=== PATIENT | female | born 1950 | race Caucasian/White ===

== ENCOUNTER 2023-07-28 14:27 | Observation (INO) ==
--- OUTSIDE RECORDS SUMMARY | 2023-07-28 14:33 | External Medical Summary | Summary of Care ---
Author Name Unknown Organization [facility] Address [address] [place] [address] Phone [phone] Care Team Providers Care Electrical Laboratory Technician Name Role Phone Bridgette Forde Primary Care Provider [phone] Encounter Details Date Type Department Care Team (Late st Contact Info) Description 06/11/2023 Population Health External Data Unspecified Department Allergies Active Allergy Reactions Criticality Noted Date Comments Lisinopril 02/15/2012 COUGH documented as of this encounter (statuses as of 06/12/2023) Medications Medication Sig Dispensed Refills Start Date End Date Status Meclizine HCl 25 MG Oral Tablet (Antivert)Indicatio ns:Vertigo One pill by mouth up to 3 times a day as needed for dizziness 30 Tablet 1 09/21/2021 Active Atorvastatin Calcium 20 MG Oral Tablet (Lipitor)Indication s:Dyslipidemia, goal LDL below 70 TAKE ONE TABLET BY MOUTH EVERY MORNING 100 Tablet 2 10/30/2022 10/30/2023 Active metFORMIN HCl 500 MG Oral Tablet (Glucophage)Indicat ions:Type 2 diabetes mellitus with hemoglobin A1c goal of less than 7.0% (HCC) TAKE ONE TABLET BY MOUTH TWICE A DAY 180 Tablet 1 02/08/2023 02/08/2024 Active Losartan Potassium 100 MG Oral Tablet (Cozaar)Indications :HTN, goal below 130/80 TAKE ONE TABLET BY MOUTH EVERY MORNING 90 Tablet 1 02/08/2023 02/08/2024 Active cloNIDine HCl 0.1 MG Oral Tablet (Catapres)Indicatio ns:HTN, goal below 130/80 TAKE ONE TABLET BY MOUTH TWICE A DAY 180 Tablet 1 03/08/2023 03/07/2024 Active Furosemide 40 MG Oral Tablet (Lasix)Indications: HTN, goal below 130/80 TAKE ONE TABLET BY MOUTH EVERY DAY IN THE MORNING 90 Tablet 2 03/08/2023 03/07/2024 Active amLODIPine Besylate 5 MG Oral Tablet (Norvasc)Indication s:HTN, goal below 130/80 TAKE ONE TABLET BY MOUTH EVERY DAY IN THE MORNING 90 Tablet 3 03/18/2023 Active Potassium Chloride Mira ER 20 MEQ Oral Tablet Extended Release (Klor-Con M20)Indications:HTN , goal below 130/80 TAKE 1 TABLET BY MOUTH DAILY 90 Tablet 3 03/25/2023 Active Ozempic (1 MG/DOSE) 4 MG/3ML Subcutaneous Solution Pen-injector (Semaglutide (1 MG/DOSE))Indication s:Type 2 diabetes mellitus with hemoglobin A1c goal of less than 7.0% (HCC) Inject 1 mg under the skin once a week. 9 mL 3 05/03/2023 Active documented as of this encounter (statuses as of 06/12/2023) Active Problems Problem Noted Date Diagnosed Date HTN, goal below 130/80 07/23/2022 Chronic kidney disease, stage 3a 07/02/2022 Overview: Per CKD protocol Type 2 diabetes mellitus wit h stage 3a chronic kidney disease 06/04/2022 Overview: Per CKD protocol Class 3 severe obesity in adult 01/26/2021 Overview: 51 DIVINA (obstructive sleep apnea) 05/21/2011 Overview: RDI on baseline 121 On bipap auto now DME: [facility] Dyslipidemia, goal LDL below 70 01/29/2011 Type 2 diabetes mellitus wit h hemoglobin A1c goal of less than 7.0% 12/01/2010 Overview: ICD-10 update of inactive term documented as of this encounter (statuses as of 06/12/2023) Resolved Problems Problem Noted Date Diagnosed Date Resolved Date Type 2 diabetes mellitus wit h stage 2 chronic kidney disease 07/23/2022 01/22/2023 Type 2 diabetes mellitus wit h stage 2 chronic kidney disease 01/22/2022 02/01/2022 Endometrial cancer 01/26/2021 Cancer Staging:Clinical stage from 02/17/2021:FIGO Stage IA(cT1a, cN0(sn), cM0) - Signed by Vasu Gaona MD on 02/23/2021 Morbid obesity with body mas s index (BMI) of 45.0 to 49.9 in adult 11/12/2018 06/21/2020 Hypertensive kidney disease with chronic kidney disease stage III 11/10/2018 12/16/2019 Diabetes mellitus with stage 3 chronic kidney disease 03/31/2018 06/06/2022 Overview: Per CKD protocol #1 BMI 40.0-44.9, adult 02/06/2017 019 Body mass index (BMI) of 45. 0 to 49.9 in adult 01/21/2017 02/06/2017 Overview: Per Obesity protocol #1 HTN, goal below 140/90 06/29/201406/21 HTN, goal below 140/80 12/10/201106/29 Overview: Per HTN Protocol #27. DIVINA (obstructive sleep apnea) 04/09/2011 05/21/2011 Overview: Very severe, AHI 121.2 T and B Hypoxemia 04/09/2011 12/16/2019 Overview: Nocturnal Shortness of breath 02/07/2011 02/08/20 11 Edema 01/13/2010 03/17/2018 Vertigo 01/13/2010 03/17/2018 HTN, goal below 130/80 01/13/201012/12 Overview: Per HTN Protocol #27. documented as of this encounter (statuses as of 06/12/2023) Immunizations Name Administration Dates Next Due COVID-19 mRNA, LNP-s, No Pre serve, 2-Dose Series (Pfizer) 03/09/2021 Pneumococcal Conjugate Vacci ne, 20-valent ([id number]) 07/23/2022 Pneumococcal Polysaccharide PPV23 (Pneumovax) 06/21/2020,11/19/2013 Seasonal Influenza, PF, 6 M & above, IM , (FluLaval or Fluzone) 01/20/2021,01/22/2020,01/30/2018,02/06 Seasonal Influenza, Quadriva lent Hd (Fluzone Hd) 01/22/2023,01/22/2022 Seasonal Influenza, Quadriva lent, No Preserve, IM 02/14/2016,02/14/2015 Seasonal Influenza, Split, I IV3, No Preserve, Inj 02/22/2018 Seasonal Influenza, Split, I IV3, With Preserve, Inj 01/29/2011,01/24/2010 TDAP (age 10 and older)(Boostrix) 07/21/2021 TDAP (age 11 and older)(Adacel) 01/13/2010 Zoster Vaccine Recombinant (Shingrix) 11/12/2018 ,03/17/2018,03/17/2018() documented as of this encounter Social History Tobacco Use Types Packs/Day Years Used Date Smoking Tobacco: Former Cigarettes 0.5 20 0 05/23/1984 - 05/23/2004 Smokeless Tobacco: Never Alcohol Use Standard Drinks/Week Comments Yes 0 (1 standard drink = 0.6 oz pur e alcohol) occasional ETOH PHQ-2 Answer Date Recorded PHQ Adult Total Score 0 09/27/2022 Hunger Vital Sign Answer Date Recorded Within the past 12 months, y ou worried that your food would run out before you got the money to buy more. Never true 09/28/19 23 Within the past 12 months, t he food you bought just didn't last and you didn't have money to get more. Never true 09/27/2022 Sex and Gender Information Value Date Recorded Sex Assigned at Not on file Gender Identity Female 09/27/2022 9:58 AM EDT Sexual Orientation Straight 11/12/2018 11 :34 AM EDT Job Start Date Occupation Industry Not on file Not on file Not on file documented as of this encounter Plan of Treatment Upcoming Encounters Date Type Department Care Team (Late st Contact Info) Description 06/26/2023 9:00 AM EST Office Visit Pharmacy, [place] [facility] [place] [phone] [facility] [address] [facility] [address] 07/24/2023 8:20 AM EDT [facility], [place] [address] [facility] [place] [phone] Yenifer Krause PA-C [address] [facility] [address] 08/09/2023 10:00 AM EDT Office Visit Sleep Disorders Ctr [facility] [address] [facility] [place] [phone] Fay Ferreira DO [address] [facility] [place] [address] 10/03/2023 9:30 AM EDT Nurse Only Ancillary Department, [place] [address] [facility] [address] [place], [facility] [address] [facility] [address] 02/20/2024 7:00 AM EDT Imaging Radiology [address] [facility] [place] [address] Scheduled Procedures Name Priority Associated Diagnoses Date/Ti me COLONOSCOPY FLEXIBLE PROXIMAL DIAGNOSTIC Recall Colon cancer screening Health Maintenance Due Date Last Done Comments Cologuard 1997 Fecal Occult Blood Test 1997 Sigmoidoscopy 1997 COVID-19 Vaccine ( season) 2022 03/09/2021, 07/27/2020, 07/06/2020 Albumin/Creatinine Ratio 05/21/2023 023, 07/25/2021, 03/17/2018, Additional history exists GFR 07/16/2023 01/15/2023, 04/24, 01/22/2022, Additional history exists Diabetic Foot Exam 07/24/2023 07/23/2022, 0 06/21/2020, 03/17/2018, Additional history exists Diabetic Eye Exam 08/08/2023 08/07/2022, , 01/11/2017, Additional history exists Depression Screening 09/28/2023 09/27/2022 HbA1c 10/23/2023 04/24/2023, 12/22, 05/21/2022, Additional history exists B-12 01/16/2024 01/15/2023, 04/0 04/2021, 12/22/2020, Additional history exists CKD HGB USE SMARTSET 96780 01/16/202401/15, 07/21/2021, 02/06/2021, Additional history exists CKD PHOS USE SMARTSET 65425 01/16/202412/22, 07/21/2021, 12/22/2020, Additional history exists Mammogram 02/19/2024 02/18/2023, 01/22, 02/16/2022, Additional history exists Colonoscopy 07/07/2025 07/08/2015 Colorectal Cancer Screening 07/07/2025 Lipid Panel 05/21/2027 05/21/2022, 04/0 04/2021, 12/08/2019, Additional history exists DXA Scan 08/22/2028 08/22/2021, 08/22/2021 DTaP,Tdap,and Td Vaccines (3 - Td or Tdap) 07/22/2031 07/21/2021, 01/13/2010 Zoster Vaccines Completed 11/12/2018, 03/17/2018 Pneumococcal Vaccine: 65+ Years Completed 07/23/2022, 06/21/2020, 11/19/2013 Influenza Vaccine (FLU shot) Completed 06/2022, 01/22/2022, 01/20/2021, Additional history exists GARDASIL-HPV IMMUNIZATION SERIES Aged Out No longer eligible based on patient's age to complete this topic Hepatitis B Aged Out No longer eligi ble based on patient's age to complete this topic MENINGOCOCCAL (MENACTRA/MENVEO) Aged Out No longer eligible based on patient's age to complete this topic documented as of this encounter Medical Devices Not on filedocumented as of this encounter Advance Directives Latest Code Status on File Code Status Date Activated Date Inactivated Comments Full Code 02/17/2021 11:44 AM 02/17/2021 4:59 PM Th is order reflects the patients wishes and were consensually agreed upon. Question Answer Comments Discussion of Advance Directives occurred with: Not Discussed Care Teams Electrical Laboratory Technician Relationship Specialty Start Date End Date Bridgette Forde DO [address] [facility] [address] PCP - General 01/12/10 documented as of this encounter
--- OUTSIDE RECORDS SUMMARY | 2023-07-28 14:33 | External Medical Summary | Summary of Care ---
Author Name Unknown Organization [facility] Address [address] [place] [address] Phone [phone] Care Team Providers Care Elder Counselor Name Role Phone Bridgette Forde Primary Care Provider [phone] Encounter Details Date Type Department Care Team (Late st Contact Info) Description 07/18/2023 Population Health External Data Unspecified Department Allergies Active Allergy Reactions Criticality Noted Date Comments Lisinopril 02/15/2012 COUGH documented as of this encounter (statuses as of 07/23/2023) Medications Medication Sig Dispensed Refills Start Date [...] DAILY 90 Tablet 3 03/25/2023 Active Ozempic (2 MG/DOSE) 8 MG/3ML Subcutaneous Solution Pen-injector (Semaglutide (2 MG/DOSE))Indication s:Type 2 diabetes mellitus with hemoglobin A1c goal of less than 7.0% (HCC),Type 2 diabetes mellitus with stage 3a chronic kidney disease, without long-term current use of insulin (HCC) Inject 2 mg under the skin once weekly - dose increase 9 mL 4 06/26/2023 Active documented as of this encounter (statuses as of 07/23/2023) Active Problems Problem Noted Date Diagnosed Date [...] as of this encounter (statuses as of 07/23/2023) Resolved Problems Problem Noted Date Diagnosed Date [...] as of this encounter (statuses as of 07/23/2023) Immunizations Name Administration Dates Next Due COVID-19 mRNA, LNP-s, No Pre serve, 2-Dose Series ([employer]) 03/09/2021 Pneumococcal Conjugate Vacci ne, 20-valent ([id number]) 07/23/2022 Pneumococcal Polysaccharide PPV23 (Pneumovax) 06/21/2020,11/19/2013 Seasonal [...] Care Team (Late st Contact Info) Description 07/24/2023 8:20 AM EDT Office [facility] [place] [address] [facility] [phone] Yenifer Krause PA-C [address] [place] [address] 08/09/2023 10:00 AM EDT [facility] [address] [facility] [phone] Fay Ferreira, [address] [facility] [place] [address] 10/03/2023 8:50 AM EDT Office Visit Pharmacy, [place] [address] [place] [facility] [address] [place], [facility] [address] [place] [facility] [address] 10/03/2023 9:30 AM EDT Nurse Only Ancillary Department, [place] [address] [place] [facility] [address] [place], Nurse Annual Wellness [address] [place] [address] 02/20/2024 7:00 AM EDT Imaging Radiology [facility] [address] [facility] [address] [facility] [address] Scheduled Procedures Name Priority Associated Diagnoses Date/Ti me COLONOSCOPY FLEXIBLE PROXIMAL DIAGNOSTIC Recall Colon cancer screening Health Maintenance Due Date Last Done Comments Cologuard 1997 Fecal Occult Blood Test 1997 Sigmoidoscopy 1997 COVID-19 Vaccine ( season) 2022 03/09/2021, 07/27/2020, 07/06/2020 Diabetic Foot Exam 07/24/2023 07/23/2022, 0 06/21/2020, 03/17/2018, Additional history exists Diabetic Eye Exam 08/08/2023 08/07/2022, , 01/11/2017, Additional history exists Depression Screening 09/28/2023 09/27/2022 B-12 01/16/2024 01/15/2023, 04/0 04/2021, 12/22/2020, Additional history exists CKD HGB USE SMARTSET 54248 01/16/202401/15, 07/21/2021, 02/06/2021, Additional history exists CKD PHOS USE SMARTSET 26743 01/16/202412/22, 07/21/2021, 12/22/2020, Additional history exists GFR 01/21/2024 07/22/2023, 12/22, 05/21/2022, Additional history exists HbA1c 01/21/2024 07/22/2023, 06/2023, 01/15/2023, Additional history exists Mammogram 02/19/2024 02/18/2023, 01/22, 02/16/2022, Additional history exists Albumin/Creatinine Ratio 07/21/2024 024, 05/21/2022, 07/25/2021, Additional history exists Colonoscopy 07/07/2025 07/08/2015 Colorectal [...] Directives occurred with: Not Discussed Care Teams Elder Counselor Relationship Specialty Start Date End Date Bridgette Forde DO [address] [place] [address] PCP - General 01/12/10 documented as of this encounter
--- OUTSIDE RECORDS SUMMARY | 2023-07-28 14:33 | External Medical Summary ---
Author Name Unknown Address Unknown Organization [id number]:[facility] [place] [address] [place] [address] Laboratory Report Ordering Provider Test Date Status JENN MADRID 07/22/2023 08:19:01 Final Observation Date Value Abnormality Reference (Units ) Status MYCODE SPECIMEN-SST 07/22/2023 08:19:01 Freezing of extracted DNA, whole blood and/or serum. Final Performing Location LABORATORY C - [address] [place] [address]
--- OUTSIDE RECORDS SUMMARY | 2023-07-28 14:33 | External Medical Summary | Summary of Care ---
Author Name Unknown Organization [facility] Address [address] [place] [address] Phone [phone] Care Team Providers Care Clinical Nurse Reviewer Name Role Phone CristinaJ Luis ibarradannielle Okeefe DO Primary Care Provider + [phone] Reason for Visit * Reason Comments Follow Up Patient is here for 6 month follow upPatient states she would like to review her blood work from saturday Encounter Details Date Type Department Care Team (Late st Contact Info) Description 07/24/2023 8:20 AM EDT Office Visit [facility] [address] [place] [address] Yenifer Krause PA-C [address] [place] [address] Type 2 diabetes mellitus with hemoglobin A1c goal of less than 7.0% (HCC)*; Type 2 diabetes mellitus with stage 3a chronic kidney disease, without long-term current use of insulin (HCC); Morbid (severe) obesity due to excess calories (HCC); Type 2 diabetes mellitus with stage 2 chronic kidney disease, unspecified whether termite control representative insulin use (HCC); Chronic kidney disease, stage 3a (HCC); HTN, goal below 130/80; Dyslipidemia, goal LDL below 70; Encounter for long-term (current) use of medications; Encounter for screening mammogram for breast cancer Allergies Active Allergy Reactions Criticality Noted Date Comments Lisinopril 02/15/2012 COUGH documented as of this encounter (statuses as of 07/24/2023) Medications Medication Sig Dispensed Refills Start Date End Date Status Meclizine HCl 25 MG Oral Tablet (Antivert)Indicati ons:Vertigo One pill by mouth up to 3 times a day as needed for dizziness 30 Tablet 1 09/21/2021 Active Atorvastatin Calcium 20 MG Oral Tablet (Lipitor)Indicatio ns:Dyslipidemia, goal LDL below 70 TAKE ONE TABLET BY MOUTH EVERY MORNING 100 Tablet 2 10/30/2022 4 Active Losartan Potassium 100 MG Oral Tablet (Cozaar)Indication s:HTN, goal below 130/80 TAKE ONE TABLET BY MOUTH EVERY MORNING 90 Tablet 1 02/08/2023 4 Active cloNIDine HCl 0.1 MG Oral Tablet (Catapres)Indicati ons:HTN, goal below 130/80 TAKE ONE TABLET BY MOUTH TWICE A DAY 180 Tablet 1 03/08/2023 4 Active Furosemide 40 MG Oral Tablet (Lasix)Indications :HTN, goal below 130/80 TAKE ONE TABLET BY MOUTH EVERY DAY IN THE MORNING 90 Tablet 2 03/08/2023 4 Active amLODIPine Besylate 5 MG Oral Tablet (Norvasc)Indicatio ns:HTN, goal below 130/80 TAKE ONE TABLET BY MOUTH EVERY DAY IN THE MORNING 90 Tablet 3 03/18/2023 Active Potassium Chloride Mira ER 20 MEQ Oral Tablet Extended Release (Klor-Con M20)Indications:HT N, goal below 130/80 TAKE 1 TABLET BY MOUTH DAILY 90 Tablet 3 03/25/2023 Active Ozempic (2 MG/DOSE) 8 MG/3ML Subcutaneous Solution Pen-injector (Semaglutide (2 MG/DOSE))Indicatio ns:Type 2 diabetes mellitus with hemoglobin A1c goal of less than 7.0% (HCC),Type 2 diabetes mellitus with stage 3a chronic kidney disease, without long-term current use of insulin ([facility]) Inject 2 mg under the skin once weekly - dose increase 9 mL 4 06/26/2023 Active metFORMIN HCl ER 500 MG Oral Tablet Extended Release 24 Hour (Glucophage XR)Indications:Typ e 2 diabetes mellitus with stage 3a chronic kidney disease, without long-term current use of insulin ([facility]),Type 2 diabetes mellitus with stage 2 chronic kidney disease, unspecified whether termite control representative insulin use ([facility]) Take 1 Tablet by mouth in the morning. 90 Tablet 1 07/24/2023 Active metFORMIN HCl 500 MG Oral Tablet (Glucophage)Indica tions:Type 2 diabetes mellitus with hemoglobin A1c goal of less than 7.0% (HCC) TAKE ONE TABLET BY MOUTH TWICE A DAY 180 Tablet 1 02/08/2023 4 Discontinue d(Medicatio n/Dose Changed) documented as of this encounter (statuses as of 07/24/2023) Active Problems Problem Noted Date Diagnosed Date Type 2 diabetes mellitus wit h stage 2 chronic kidney disease 07/24/2023 HTN, goal below 130/80 07/23/2022 Chronic kidney [...] as of this encounter (statuses as of 07/24/2023) Resolved Problems Problem Noted Date Diagnosed Date Resolved Date Type 2 diabetes mellitus wit h stage 2 chronic kidney disease 07/23/2022 01/22/2023 Type 2 diabetes mellitus wit h stage 2 chronic kidney disease 01/22/2022 02/01/2022 Endometrial cancer 01/26/2021 3 Cancer Staging:Clinical stage from 02/17/2021:FIGO Stage IA(cT1a, [...] as of this encounter (statuses as of 07/24/2023) Immunizations Name Administration Dates Next Due COVID-19 mRNA, LNP-s, No Pre serve, 2-Dose Series (Pay-Me) 03/09/2021 Pneumococcal Conjugate Vacci ne, 20-valent ([id number]) 07/23/2022 Pneumococcal Polysaccharide PPV23 (Pneumovax) 06/21/2020,11/19/2013 Seasonal [...] on file documented as of this encounter Last Filed Vital Signs Vital Sign Reading Time Taken Comments Blood Pressure 122/88 07/24/2023 8:14 AM EDT Pulse 76 07/24/2023 8:14 AM EDT Temperature 36.6 C (97.8 F) 07/24/2023 8:14 AM ED T Respiratory Rate 16 07/24/2023 8:14 AM EDT Oxygen Saturation 98% 07/24/2023 8:14 AM EDT Inhaled Oxygen Concentration - - Weight 131 kg (288 lb 12.8 oz) 07/24/2023 8:14 A M EDT Height - - Body Mass Index 46.61 08/08/2022 10:35 AM EDT documented in this encounter Patient Instructions * Patient Instructions* Hiro Garcia Student - 07/24/2023 8:11 AM EDT Diabetes: Keeping Feet Healthy Inspect your feet every day for signs of a problem. Diabetes can damage nerves in your feet and cause neuropathy. This condition makes it hard for you to feel injuries or sore spots. Diabetes can also change blood flow, making it harder for small problems, like a blister, to heal properly. In fact, minor injuries can quickly become serious infections that send you to the hospital. Practice self-care to protect your feet and keep them healthy. Take Special Care Inspect your feet daily for problems such as redness, blisters, cracks, dry skin, or numbness. Use a mirror to see the bottoms of your feet. Or, ask for help. Manage your diabetes. Monitor and control your blood sugar. Take all your medications as prescribed. Avoid walking barefoot, even indoors. Wash your feet with warm water and mild soap. Dry well, especially between toes. Dont treat corns or calluses yourself. Talk to your doctor or windows deployment technician (a doctor who specializes in foot care) if you need assistance trimming your toenails. Use moisturizing cream or lotion if you have dry skin, but dont use it between toes. Dont use heating pads on your feet. If you have neuropathy, you could get a burn and not feel it. Stop smoking. Smoking restricts blood flow and can make it harder for wounds to heal. Have Regular Checkups Foot problems can develop quickly. So be sure to follow your healthcare teams schedule for regular checkups. During office visits, take off your shoes and socks as soon as you get in the exam room. Ask your healthcare provider to examine your feet for problems. This will make it easier to find and treat small skin irritations before they get worse. Regular checkups can also help keep track of the blood flow and feeling in your feet. If you have neuropathy, you may need to have checkups more often. Wear Proper Footwear Wearing proper footwear is very important. If areas of your feet have been damaged by too much pressure, your healthcare provider may recommend changing your footwear. In some cases, avoiding high heels or tight work boots may be all thats needed. Or, your healthcare provider may recommend special shoes or custom inserts. These help protect your feet and keep existing irritations from getting worse. If you need special footwear, ask your healthcare provider if you qualify for [employer] diabetic shoe program. Make Sure Shoes and Socks Fit Any pair of shoes--new or old--should feel comfortable as soon as you put them on. There shouldnt be any rubbing when you walk. Wear the right shoe for any activity. For instance, a running shoe is designed to keep your feet injury-free while jogging. Buy shoes at the end of the day, when your feet are larger. Make sure they provide support without feeling too loose. Make sure your socks fit, t oo. Wear soft, seamless, well-padded socks for activity. Cotton or microfiber socks are best to help to absorb sweat. To protect your feet, avoid shoes that are open-toed or open-heeled. If you have questions about what kinds of shoes and socks are best, talk to your healthcare team. Get Regular Exercise Regular exercise improves blood flow in your feet. It also increases foot strength and flexibility.Gentle exercises, like walking or riding a stationary bicycle, are best. You can also do special foot exercises. Just be sure to talk with your healthcare provider before starting any exercise program. Also mention if any exercise causes pain, redness, or other signs of foot problems. Note: If you have any kind of break in the skin of your foot or ankle, keep the area clean. Then call your doctor--especially if the area doesnt appear to be healing. [phone] [employer], [address] [place] [address]. All rights reserved. This information is not intended as a substitute for professional medical care. Always follow your healthcare professional's instructions. documented in this encounter Progress Notes * Yenifer Krause PA-C - 07/24/2023 8:24 AM EDT Images from the original note were not included. History of Present Illness Shivani Gee is a 73 year old female that presents for Follow Up (Patient is here for 6 month follow up/Patient states she would like to review her blood work from saturday) Here for 6 months return Doing her ozempic and losing weight Healthier Lost 20 lbs Did her lab work yesterday. Exercising Gets full fast - better portion control Eye exam scheduled Component Latest Ref Rng 12/22/2020 07/21/2021 01/22/2022 05/21/2022 01/15/2023 Hemoglobin A1C 4.0 - 5.6 % 6.3 (H) 6.5 (H) 6.3 (H) 6.3 (H) 6.7 (H) Estimated Average Glucose <126 mg/dL 134 (H) 140 (H) 134 (H) 134 (H) 146 (H) Component Latest Ref Rng 04/24/2023 07/22/2023 Hemoglobin A1C 4.0 - 5.6 % 6.5 (H) 5.9 (H) Estimated Average Glucose <126 mg/dL 140 (H) 123 Legend: (H) High Past Medical History: Diagnosis Date Dyslipidemia, goal LDL below 70 01/29/2011 Endometrial ca (HCC) HTN, goal below 140/90 2003 Type 2 diabetes mellitus with hemoglobin A1c goal of less than 7.0% (HCC) 12/01/2010 ICD-10 update of inactive term Vertigo Physical Exam Vitals: 07/24/23 0814 Temp: 36.6 C (97.8 F) Pulse: 76 Resp: 16 SpO2: 98% BP: 122/88 BP Readings from Last 3 Encounters: 07/24/23 122/88 01/22/23 124/80 09/27/22 171/87 Wt Readings from Last 3 Encounters: 07/24/23 131 kg (288 lb 12.8 oz) 01/22/23 (!) 139.1 kg (306 lb 9.6 oz) 09/27/22 (!) 139.1 kg (306 lb 11.2 oz) BMI Readings from Last 3 Encounters: 07/24/23 46.61 kg/m 01/22/23 49.49 kg/m 09/27/22 49.50 kg/m Ht Readings from Last 3 Encounters: 08/08/22 1.676 m (5' 6") 01/22/22 1.676 m (5' 6") 10/12/21 1.676 m (5' 6") General: alert, healthy, and no distress Head: Normocephalic, No masses, lesions, tenderness or abnormalities Eye Exam: PERRLA, extraocular movements intact, conjunctiva are pink and non- injected, sclera clear Heart: regular rate & rhythm, no murmur, no gallops, S-1 normal, and S-2 normal Lungs: chest symmetric with normal AP diameter, no chest deformities noted, no chest wall tenderness, lungs clear to auscultation Extremities: less than 2 second capillary refill, no joint deformities, effusion, or inflammation Skin: skin color, texture, turgor are normal, no rashes or significant lesions I have reviewed the following results: Hemoglobin A1C Assessment and Plan Type 2 diabetes mellitus with hemoglobin A1c goal of less than 7.0% ([facility]) (Primary) - DIABETES FOOT EXAM - VITAMIN B12; Future; Expected date: 10/22/2023 - LIPASE; Future; Expected date: 10/22/2023 - HEMOGLOBIN A1C; Future; Expected date: 10/22/2023 Type 2 diabetes mellitus with stage 3a chronic kidney disease ([facility]) - DIABETES FOOT EXAM - metFORMIN HCl ER 500 MG Oral Tablet Extended Release 24 Hour (Glucophage XR); Take 1 Tablet by mouth in the morning. - VITAMIN B12; Future; Expected date: 10/22/2023 - LIPASE; Future; Expected date: 10/22/2023 - HEMOGLOBIN A1C; Future; Expected date: 10/22/2023 Morbid (severe) obesity due to excess calories ([facility]) Type 2 diabetes mellitus with stage 2 chronic kidney disease, unspecified whether termite control representative insulinuse ([facility]) - metFORMIN HCl ER 500 MG Oral Tablet Extended Release 24 Hour (Glucophage XR); Take 1 Tablet by mouth in the morning. - VITAMIN B12; Future; Expected date: 10/22/2023 - LIPASE; Future; Expected date: 10/22/2023 - HEMOGLOBIN A1C; Future; Expected date: 10/22/2023 Chronic kidney disease, stage 3a ([facility]) - PHOSPHORUS; Future; Expected date: 10/22/2023 - HGB; Future; Expected date: 10/22/2023 - COMPREHENSIVE METABOLIC PANEL; Future; Expected date: 10/22/2023 HTN, goal below 130/80 - LIPID PANEL WITH DIRECT LDL IF TG IS HIGH Dyslipidemia, goal LDL below 70 - LIPID PANEL WITH DIRECT LDL IF TG IS HIGH Encounter for long-term (current) use of medications - LIPASE Encounter for screening mammogram for breast cancer - MAMMOGRAM SCREENING SONAL BILATERAL; Future; Expected date: 02/20/2024 Cont to monitor lipase Rev labs Patient congratulated on weight loss Drop dose of metformin The patient is asked to make an attempt to improve diet and exercise patterns to aid in medical management of this problem. It is recommended that patients exercise for a minimum of 20 minutes duration most days of the week. Intensity should be such that the heart rate is increased and the patient is making a physical effort above their normal level of activity. Wrap-Up Time: I spent a total of 20-29 minutes (exact time 26 mins) on the date of service in preparation, delivery, and documentation of the care provided to Shivani Gee excluding any time spent in the performance of separately billed services. Yenifer Krause PA-C 07/24/2023 8:36 AM * Hiro Garcia Student - 07/24/2023 8:10 AM EDT Socks and Shoes Removed for Annual Diabetic Foot Screening RIGHT FOOT: No Reddened, Cracking, Or Open Areas Noted. RIGHT Dorsalis Pedis Pulse: Palpable RIGHT Posterior Tibial Pulse: Palpable RIGHT Monofilament:Patient reports feeling monofilament pressure on plantar surface of foot LEFT FOOT: No Reddened, Cracking or Open Areas Noted. LEFT Dorsalis Pedis Pulse: Palpable LEFT Posterior Tibial Pulse: Palpable LEFT Monofilament:Patient reports feeling monofilament pressure on plantar surface of foot Do you need diabetic shoes: No documented in this encounter Nursing Notes * Hiro Garcia Student - 07/24/2023 8:18 AM EDT The patient has been properly identified by confirmation of name and date of . Chief Complaint Patient presents with Follow Up Patient is here for 6 month follow up Patient states she would like to review her blood work from saturday documented in this encounter Plan of Treatment Upcoming Encounters Date Type Department Care Team (Late st Contact Info) Description 08/09/2023 10:00 AM EDT Office Visit [facility] [address] [place] [id number] Fay Ferreira DO [address] [place] [address] 10/03/2023 8:50 AM EDT [facility] [place] [address] [facility] [address] [facility] [address] [facility] [address] 10/03/2023 9:30 AM EDT Nurse Only Ancillary Department, [place] [address] [facility] [address] [place], [facility] [address] [facility] [address] 01/23/2024 8:20 AM EDT Office Visit [facility], [place] [address] [facility] [phone] Yenifer Krause [facility]-C [address] [facility] [address] 02/20/2024 7:00 AM EDT Imaging Radiology [address], [place] [address] [place] [address] Pending Results Name Type Priority Associated Diagnoses Date /Time LIPASE Lab Routine Encounter for long-term (current) use of medications 07/22/2023 8:19 AM EDT LIPID PANEL WITH DIRECT LDL IF TG IS HIGH Lab Routine HTN, goal below 130/80 Dyslipidemia, goal LDL below 70 07/22/2023 8:19 AM EDT Scheduled Orders Name Type Priority Associated Diagnoses Orde r Schedule PHOSPHORUS Lab Routine Chronic kidney disease, stage 3a (HCC) Expected: 10/22/2023 (Approximate), Expires: 07/23/2024 HGB Lab Routine Chronic kidney disease, stage 3a (HCC) Expected: 10/22/2023 (Approximate), Expires: 07/23/2024 VITAMIN B12 Lab Routine Type 2 diabetes mellitus with hemoglobin A1c goal of less than 7.0% (HCC) Type 2 diabetes mellitus with stage 3a chronic kidney disease, without long-term current use of insulin (HCC) Type 2 diabetes mellitus with stage 2 chronic kidney disease, unspecified whether termite control representative insulin use (HCC) Expected: 10/22/2023 (Approximate), Expires: 07/23/2024 COMPREHENSIVE METABOLIC PANEL Lab Routine Chronic kidney disease, stage 3a (HCC) Expected: 10/22/2023 (Approximate), Expires: 07/23/2024 LIPASE Lab Routine Type 2 diabetes mellitus with hemoglobin A1c goal of less than 7.0% (HCC) Type 2 diabetes mellitus with stage 3a chronic kidney disease, without long-term current use of insulin (HCC) Type 2 diabetes mellitus with stage 2 chronic kidney disease, unspecified whether fdc insulin use (HCC) Expected: 10/22/2023 (Approximate), Expires: 07/23/2024 HEMOGLOBIN A1C Lab Routine Type 2 diabetes mellitus with hemoglobin A1c goal of less than 7.0% (HCC) Type 2 diabetes mellitus with stage 3a chronic kidney disease, without long-term current use of insulin (HCC) Type 2 diabetes mellitus with stage 2 chronic kidney disease, unspecified whether fdc insulin use (HCC) Expected: 10/22/2023 (Approximate), Expires: 07/23/2024 MAMMOGRAM SCREENING SONAL BILATERAL Medical Imaging Routine Encounter for screening mammogram for breast cancer Expected: 02/20/2024, Expires: 08/22/2024 Scheduled Procedures Name Priority Associated Diagnoses Date/Ti me COLONOSCOPY FLEXIBLE PROXIMAL DIAGNOSTIC Recall Colon cancer screening Health Maintenance Due Date Last Done Comments Cologuard 1997 Fecal Occult Blood Test 1997 Sigmoidoscopy 1997 COVID-19 Vaccine ( season) 2022 03/09/2021, 07/27/2020, 07/06/2020 Diabetic Eye Exam 08/08/2023 08/07/2022, , 01/11/2017, Additional history exists Depression Screening 09/28/2023 09/27/2022 B-12 01/16/2024 01/15/2023, 040 04/2021, 12/22/2020, Additional history exists CKD HGB USE SMARTSET 49866 01/16/202401/15, 07/21/2021, 02/06/2021, Additional history exists CKD PHOS USE SMARTSET 17892 01/16/202412/22, 07/21/2021, 12/22/2020, Additional history exists GFR 01/21/2024 07/22/2023, 12/22, 05/21/2022, Additional history exists HbA1c 01/21/2024 07/22/2023, 06/2023, 01/15/2023, Additional history exists Mammogram 02/19/2024 02/18/2023, 01/22, 02/16/2022, Additional history exists Albumin/Creatinine Ratio 07/21/2024 024, 05/21/2022, 07/25/2021, Additional history exists Diabetic Foot Exam 07/23/2024 07/24/2023, 0 07/23/2022, 06/21/2020, Additional history exists Colonoscopy 07/07/2025 07/08/2015 Colorectal [...] Not on filedocumented as of this encounter Visit Diagnoses Diagnosis Type 2 diabetes mellitus with stage 2 chronic kidney disease, unspecified whether fdc insulin use (HCC) Type 2 diabetes mellitus with stage 3a chronic kidney disease, without long-term current use of insulin (HCC) Morbid (severe) obesity due to excess calories (HCC) Chronic kidney disease, stage 3a (HCC) HTN, goal below 130/80 Unspecified essential hypertension Dyslipidemia, goal LDL below 70 Other and unspecified hyperlipidemia Encounter for long-term (current) use of medications Encounter for long-term (current) use of other medications Encounter for screening mammogram for breast cancer documented in this encounter Advance Directives Latest Code Status on File Code Status Date Activated Date Inactivated Comments Full Code 02/17/2021 11:44 AM 02/17/2021 4:59 PM Th is order reflects the patients wishes and were consensually agreed upon. Question Answer Comments Discussion of Advance Directives occurred with: Not Discussed Care Teams Clinical Nurse Reviewer Relationship Specialty Start Date End Date Bridgette Forde DO [address] [place] [address] PCP - General 01/12/10 documented as of this encounter
--- OUTSIDE RECORDS SUMMARY | 2023-07-28 14:33 | External Medical Summary ---
Author Name Unknown Address Unknown Organization [id number]:[facility] [place] - [address] [place] [address] Laboratory Report Ordering Provider Test Date Status DALE MALONEY 07/22/2023 14:03:13 Final Normal: <30 mg/g creatinine< br/>High: 30-300 mg/g creatinine
Very High: >300 mg/g creatinine
Nephrotic: >2200 mg/g creatinine Observation Date Value Abnormality Reference (Units ) Status Albumin, Urine 07/22/2023 14:03:13 3.49 (mg/dL) Final Creatinine, Urine 07/22/2023 14:03:13 251 (mg/dL) Final Albumin/Creatinine [Mass Ratio] in Urine 07/22/2023 14:03:13 14 <30 (mg/g Creat) Final Performing Location [facility] [place] - [address] [place] [address]
--- OUTSIDE RECORDS SUMMARY | 2023-07-28 14:33 | External Medical Summary | Summary of Care ---
Author Name Unknown Organization [facility] Address [address] [place] [address] Phone [phone] Care Team Providers Care Director Of Career Resources Name Role Phone JorgitoBridgette millan Sary THAPA Primary Care Provider + [phone] Reason for Visit * Reason Comments Outpatient Testing Encounter Details Date Type Department Care Team (Late st Contact Info) Description 07/22/2023 8:10 AM EDT Laboratory Laboratory, [place] [address] [place] [address] [place], Laboratory [address] [place] [address] [employer] Other*[id number]; Type 2 diabetes mellitus with hemoglobin A1c goal of less than 7.0% ([facility]); Type 2 diabetes mellitus with stage 3a chronic kidney disease ([facility]) Allergies Active Allergy Reactions Criticality Noted Date Comments Lisinopril 02/15/2012 COUGH documented as of this encounter (statuses as of 07/22/2023) Medications Medication Sig Dispensed Refills Start Date [...] as of this encounter (statuses as of 07/22/2023) Active Problems Problem Noted Date Diagnosed Date [...] as of this encounter (statuses as of 07/22/2023) Resolved Problems Problem Noted Date Diagnosed Date [...] as of this encounter (statuses as of 07/22/2023) Immunizations Name Administration Dates Next Due COVID-19 mRNA, LNP-s, No Pre serve, 2-Dose Series (Pfizer) 03/09/2021 Pneumococcal Conjugate Vacci ne, 20-valent ([id number]) 07/23/2022 Pneumococcal Polysaccharide PPV23 (Pneumovax) 06/21/2020,11/19/2013 Seasonal [...] Description 07/24/2023 8:20 AM EDT [facility] [place] [address] [facility] [address] [facility]use [facility]C [address] [facility] [address] 08/09/2023 10:00 AM EDT Office Visit Sleep Disorders Ctr [facility] [address] [place] [phone] Fay Ferreira DO [address] [facility] [place] [address] 10/03/2023 8:50 AM EDT Office [facility] [place] [address] [facility] [address] [place], [facility] [address] [facility] [address] 10/03/2023 9:30 AM EDT Nurse Only Ancillary Department, [place] [address] [facility] [address] [place], Nurse [facility] [address] [facility] [address] 02/20/2024 7:00 AM EDT Imaging Radiology [address] [facility] [place] [address] Pending Results Name Type Priority Associated Diagnoses Date /Time MYCODE SUBSEQUENT ADULT Lab Routine [employer] Other*[id number] 07/22/2023 8:19 AM EDT HEMOGLOBIN A1C Lab Routine Type 2 diabetes mellitus with hemoglobin A1c goal of less than 7.0% (HCC) Type 2 diabetes mellitus with stage 3a chronic kidney disease (HCC) 07/22/2023 8:19 AM EDT BASIC METABOLIC PANEL Lab Routine Type 2 diabetes mellitus with hemoglobin A1c goal of less than 7.0% (HCC) Type 2 diabetes mellitus with stage 3a chronic kidney disease (HCC) 07/22/2023 8:19 AM EDT MYCODE SST1 Lab Routine [employer] Other*[id number] 07/22/2023 8:19 AM EDT MYCODE SST2 Lab Routine [employer] Other*[id number] 07/22/2023 8:19 AM EDT Scheduled Procedures Name Priority Associated Diagnoses Date/Ti [...] Additional history exists CKD HGB USE SMARTSET 37618 01/16/202401/15, 07/21/2021, 02/06/2021, Additional history exists CKD PHOS USE SMARTSET 14100 01/16/202412/22, 07/21/2021, 12/22/2020, Additional history exists Mammogram [...] as of this encounter Visit Diagnoses Diagnosis [employer] Other*[id number] Type 2 diabetes mellitus with hemoglobin A1c goal of less than 7.0% (HCC) Type 2 diabetes mellitus with stage 3a chronic kidney disease (HCC) documented in this encounter Advance Directives Latest Code Status on File Code Status Date Activated Date Inactivated Comments Full Code 02/17/2021 11:44 AM 02/17/2021 4:59 PM Th is order reflects the patients wishes and were consensually agreed upon. Question Answer Comments Discussion of Advance Directives occurred with: Not Discussed Care Teams Director Of Career Resources Relationship Specialty Start Date End Date Bridgette Forde DO [address] [place] [address] PCP - General 01/12/10 documented as of this encounter
--- OUTSIDE RECORDS SUMMARY | 2023-07-28 14:33 | External Medical Summary ---
Author Name Unknown Address Unknown Organization K01:LABORATORY [facility] - [address] [place] [address] Laboratory Report Ordering Provider Test Date Status MARY KATE BAIG 07/22/2023 08:19:01 Final Observation Date Value Abnormality Reference (Units ) Status Triglyceride 07/22/2023 08:19:01 161 <=174 ( mg/dL) Final Triglyceride Reference Range s (mg/dL):
<150 Acceptable
150-174 Borderline high
175-499 High
>=500 Very high Cholesterol 07/22/2023 08:19:01 129 <200 (mg /dL) Final Total Cholesterol Reference Ranges (mg/dL):
<200 Desirable
200-239 Borderline high
>=240 High HDL 07/22/2023 08:19:01 52 >49 (mg/dL ) Final HDL Cholesterol Reference Ra nges (mg/dL):
>=60 High (Desirable)
<50 Low (Undesirable) For Females
<40 Low (Undesirable) For Males NON-HDL CHOLESTEROL 07/22/2023 08:19:01 77 <=159 (mg/dL) Final Non-HDL Cholesterol Referenc e Range (mg/dL):
<100 Target level for high risk ASCVD patient
<130 Optimal for general population
130-159 Near optimal for general population
160-189 Borderline High
190-219 High
>=220 Very High Performing Location LABORATORY [facility] - [address] [place] [address]
--- OUTSIDE RECORDS SUMMARY | 2023-07-28 14:33 | External Medical Summary | Summary of Care ---
Author Name Unknown Organization [facility] Address [address] [place] [address] Phone [phone] Care Team Providers Care Retort Load Expediter Name Role Phone Bridgette Forde Sary THAPA Primary Care Provider + [phone] Reason for Visit * Reason Comments Dosage Adjustment In Person (Anticoag Cl inic) Diabetes Management Encounter Details Date Type Department Care Team (Late st Contact Info) Description 05/03/2023 9:10 AM [facility] Pharmacy Pharmacy, [place] [address] [place] [address] [facility] [address] [place] [address] Type 2 diabetes mellitus with hemoglobin A1c goal of less than 7.0% ([facility])*; Type 2 diabetes mellitus with stage 3a chronic kidney disease ([facility]) Allergies Active Allergy Reactions Criticality Noted Date Comments Lisinopril 02/15/2012 COUGH documented as of this encounter (statuses as of 05/03/2023) Medications Medication Sig Dispensed Refills Start Date End Date Status Meclizine HCl 25 MG Oral Tablet (Antivert)Indicati ons:Vertigo One pill by mouth up to 3 times a day as needed for dizziness 30 Tablet 1 09/21/2021 Active Atorvastatin Calcium 20 MG Oral Tablet (Lipitor)Indicatio ns:Dyslipidemia, goal LDL below 70 TAKE ONE TABLET BY MOUTH EVERY MORNING 100 Tablet 2 10/30/2022 Active metFORMIN HCl 500 MG Oral Tablet (Glucophage)Indica tions:Type 2 diabetes mellitus with hemoglobin A1c goal of less than 7.0% (HCC) TAKE ONE TABLET BY MOUTH TWICE A DAY 180 Tablet 1 02/08/2023 4 Active Losartan Potassium 100 MG Oral [...] 4 MG/3ML Subcutaneous Solution Pen-injector (Semaglutide (1 MG/DOSE))Indicatio ns:Type 2 diabetes mellitus with hemoglobin A1c goal of less than 7.0% (HCC) Inject 1 mg under the skin once a week. 9 mL 3 05/03/2023 Active Ozempic (0.25 or 0.5 MG/DOSE) 2 MG/3ML Solution Pen-injector (Semaglutide(0.25 or 0.5MG/DOS))Indicat ions:Type 2 diabetes mellitus with hemoglobin A1c goal of less than 7.0% (HCC) Inject 0.5 mg under the skin once a week. 9 mL 0 02/13/2023 4 Discontinued documented as of this encounter (statuses as of 05/03/2023) Active Problems Problem Noted Date Diagnosed Date [...] as of this encounter (statuses as of 05/03/2023) Resolved Problems Problem Noted Date Diagnosed Date [...] as of this encounter (statuses as of 05/03/2023) Immunizations Name Administration Dates Next Due COVID-19 mRNA, LNP-s, No Pre serve, 2-Dose Series (Pfizer) 03/09/2021 Pneumococcal Conjugate Vacci ne, 20-valent ([id number]) 07/23/2022 Pneumococcal Polysaccharide PPV23 (Pneumovax) 06/21/2020,11/19/2013 Seasonal [...] Date Smoking Tobacco: Former Cigarettes 0.5 20 Q uit: 05/23/2004 Smokeless Tobacco: Never Alcohol Use Standard Drinks/Week Comments Yes 0 (1 standard drink = 0.6 oz pur e alcohol) occasional ETOH PHQ-2 Answer Date Recorded PHQ Adult Total Score 0 09/27/2022 Hunger Vital Sign Answer Date Recorded Within the past 12 months, y ou worried that your food would run out before you got the money to buy more. Never true 09/28/19 Within the past 12 months, t he [...] on file documented as of this encounter Progress Notes * Beto Rodriguez, [facility] - 05/03/2023 9:01 AM EST Medication Therapy Disease Management Clinic - Diabetes Management Progress Note Shivani Gee, identified by name and date of , is a 72 year old female being seen for diabetes management/education. Patient presents for return diabetic visit. DIABETES: Current diabetic medications: Metformin 500 mg one tablet twice daily Ozempic 0.25 mg once weekly x 3 more doses, then increase to 0.5 mg once weekly thereafter - Sundays eGFR 60 mL/min as of 01/15/23 Medication Injection Site: Abdomen Lifestyle: Diet: unchanged Glucose Review/SMBG: Readings obtained from patient documented BG logbook Pre am 117 107 136 108 132 136 97 123 130 108 120 138 135 Pre am Average 122 Hi 138 Lo 97 Range 41 Hypoglycemia: Does your blood sugar go below 70 mg/dL? No Hyperglycemia symptoms present: none Recent Labs Units 04/24/23 0858 01/15/23 0742 05/21/22 0840 HEMOGLOBIN A1C - [facility] % 6.5* 6.7* 6.3* Recent Labs Units 01/15/23 0742 05/21/22 0840 01/22/22 1210 ESTIMATED GLOMERULAR FILTRATION RATE - [facility] mL/min 60 58* 54* CREATININE - [facility] mg/dL 1.0 1.0 1.1* HYPERTENSION: Patient on ACEi/ARB: yes BP Readings from Last 3 Encounters: 01/22/23 124/80 09/27/22 171/87 08/08/22 144/90 Blood pressure at goal: yes HYPERLIPIDEMIA: Patient is taking moderate or high intensity statin: yes HEALTH MAINTENANCE REVIEW: Health Maintenance Due Topic Date Due Hepatitis B (1 of 3 - Risk 3-dose series) Never done COVID-19 Vaccine ( season) 2022 Albumin/Creatinine Ratio 05/21/2023 ASSESSMENT & PLAN: ICD-10-CM 1. Type 2 diabetes mellitus with hemoglobin A1c goal of less than 7.0% (HCC) E11.9 2. Type 2 diabetes mellitus with stage 3a chronic kidney disease (HCC) E11.22 N18.31 BG Readings - Blood sugars controlled. BG averaging 122 in the AM, A1c 6.5%. Medications - Reviewed current regimen, patient is adherent to regimen. Patient agreeable to increase ozempic dose to 1mg. Diet, Exercise, Lifestyle - No significant lifestyle changes since last visit. Patient is agreeable to SMBG 1 time(s) daily. Patient aware to contact clinic if any hypoglycemia before next visit. MEDICATION CHANGES: yes, see below; preferred pharmacy: [facility] ([facility]) Diabetic Medications: Metformin 500 mg one tablet twice daily Ozempic 0.25 mg once weekly x 3 more doses, then increase to 0.5 mg once weekly thereafter - Sundays eGFR 60 mL/min as of 01/15/23 HEALTH MAINTENANCE INTERVENTIONS: Labs: Up to Date Immunizations: Up to Date Foot Exam: Up to Date Eye Exam: Up to Date Annual Wellness Visit: Up to Date FOLLOW UP: Return to clinic in 8 weeks 06/26/2023 Beto Rodriguez [facility] Clinical Pharmacist - Occupational Health And Safety Manager Medication Therapy Management Clinic 05/03/2023, 9:01 AM documented in this encounter Plan of Treatment Upcoming Encounters Date Type Department Care Team (Late st Contact Info) Description 06/26/2023 9:00 AM EST Pharmacy Pharmacy, [address] [place] [place] [address] [facility] [address] [facility] [place] [place] [address] 07/24/2023 8:20 AM EDT Office Visit [facility] Practice, [place] [address] [facility] [phone] Yneifer Krause [facility]-C [address] [facility] [place] [address] 08/09/2023 10:00 AM EDT [facility] [place] [phone] Fay Ferreira, [address] [facility] [place] [address] 10/03/2023 9:30 AM EDT Nurse Only Ancillary Department, [place] [address] [facility] [place] [place] [address] [place], Nurse [facility] [address] [facility] [address] 02/20/2024 7:00 AM EDT Imaging Radiology [address] [facility] [place] [address] Scheduled Procedures Name Priority Associated Diagnoses Date/Ti me COLONOSCOPY FLEXIBLE PROXIMAL DIAGNOSTIC Recall Colon cancer screening Health Maintenance Due Date Last Done Comments Cologuard 1997 Fecal Occult Blood Test 1997 Sigmoidoscopy 1997 Hepatitis B (1 of 3 - Risk 3-dose series) 2012 COVID-19 Vaccine ( season) 2022 03/09/2021, 07/27/2020, [...] Additional history exists CKD HGB USE SMARTSET 70467 01/16/202401/15, 07/21/2021, 02/06/2021, Additional history exists CKD PHOS USE SMARTSET 92105 01/16/202412/22, 07/21/2021, 12/22/2020, Additional history exists Mammogram 02/19/2024 02/18/2023, 01/21, 01/25/2021, Additional history exists Colonoscopy 07/07/2025 07/08/2015 Colorectal Cancer Screening 07/07/2025 Lipid Panel 05/21/2027 05/21/2022, 04/0 04/2021, 12/08/2019, Additional history exists DXA Scan 08/22/2028 08/22/2021 DTaP,Tdap,and Td Vaccines (3 - Td [...] Diagnoses Diagnosis Type 2 diabetes mellitus with hemoglobin A1c goal of less than 7.0% (HCC)- Primary Type 2 diabetes mellitus with stage 3a chronic kidney disease (HCC) documented in this encounter Advance Directives Latest Code Status on File Code Status Date Activated Date Inactivated Comments Full Code 02/17/2021 11:44 AM 02/17/2021 4:59 PM Th is order reflects the patients wishes and were consensually agreed upon. Question Answer Comments Discussion of Advance Directives occurred with: Not Discussed Care Teams Retort Load Expediter Relationship Specialty Start Date End Date Bridgette Forde DO [address] [place] [address] PCP - General 01/12/10 documented as of this encounter
--- OUTSIDE RECORDS SUMMARY | 2023-07-28 14:33 | External Medical Summary | Summary of Care ---
Author Name Unknown Organization [facility] Address [address] [place] [address] Phone [phone] Care Team Providers Care Database Manager Name Role Phone AmbrosioBridgette solano Sary THAPA Primary Care Provider + [phone] Reason for Visit * Reason Comments Dosage Adjustment In Person (Anticoag Cl inic) Diabetes Follow-Up Encounter Details Date Type Department Care Team (Late st Contact Info) Description 06/26/2023 9:00 AM EST Office Visit Pharmacy, [address] [address] [facility] [address] [place] [address] Type 2 diabetes mellitus with hemoglobin A1c goal of less than 7.0% ([facility]; Type 2 diabetes mellitus with stage 3a chronic kidney disease ([facility]) Allergies Active Allergy Reactions Criticality Noted Date Comments Lisinopril 02/15/2012 COUGH documented as of this encounter (statuses as of 06/26/2023) Medications Medication Sig Dispensed Refills Start Date [...] use of insulin (HCC) Inject 2 mg once weekly - dose increase 9 mL 4 06/26/2023 Active Ozempic (1 MG/DOSE) 4 MG/3ML Subcutaneous Solution Pen-injector (Semaglutide (1 MG/DOSE))Indicatio ns:Type 2 diabetes mellitus with hemoglobin A1c goal of less than 7.0% ([facility]) Inject 1 mg under the skin once a week. 9 mL 3 05/03/2023 4 Discontinued documented as of this encounter (statuses as of 06/26/2023) Active Problems Problem Noted Date Diagnosed Date [...] as of this encounter (statuses as of 06/26/2023) Resolved Problems Problem Noted Date Diagnosed Date [...] as of this encounter (statuses as of 06/26/2023) Immunizations Name Administration Dates Next Due COVID-19 mRNA, LNP-s, No Pre serve, 2-Dose Series (Pfizer) 03/09/2021 Pneumococcal Conjugate Vacci ne, 20-valent ([id number]) 07/23/2022 Pneumococcal Polysaccharide PPV23 (Pneumovax) 06/21/2020,11/19/2013 Seasonal [...] as of this encounter Progress Notes * Mayra Torres, [facility] - 06/26/2023 8:51 AM EST Medication Therapy Disease Management Clinic - Diabetes Management Progress Note Shivani Gee, identified by name and date of , is a 73 year old female being seen for diabetes management/education. Patient presents for return diabetic visit. DIABETES: Current diabetic medications: Metformin 500 mg one tablet twice daily Ozempic 1 mg once weekly - Sundays eGFR 60 mL/min as of 01/15/23 Medication Injection Site: Abdomen Lifestyle: Diet: pt notes portion sizes have shrunk since starting ozempic Glucose Review/SMBG: Readings obtained from patient device Pre am Post am Pre Lunch Post Lunch Pre pm Post pm HS 119 105 109 121 85 92 128 57 123 129 115 125 117 124 117 129 112 105 113 120 125 118 126 130 123 118 105 123 121 Average 120 #DIV/0! 82 #DIV/0! 101 #DIV/0! #DIV/0! Hi 130 0 105 0 109 0 0 Lo 105 0 57 [address]5 0 85 0 #DIV/0! 0 0 Range 25 0 48 0 17 0 0 Hypoglycemia: Does your blood sugar go below 70 mg/dL? Yes, see above Hyperglycemia symptoms present: none Recent Labs Units [...] REVIEW: Health Maintenance Due Topic Date Due COVID-19 Vaccine ( season) 2022 Albumin/Creatinine Ratio 05/21/2023 Diabetic Foot Exam 07/24/2023 ASSESSMENT & PLAN: ICD-10-CM 1. Type 2 diabetes mellitus with hemoglobin A1c goal of less than 7.0% ([facility]) E11.9 2. Type 2 diabetes mellitus with stage 3a chronic kidney disease ([facility]) E11.22 N18.31 Considerations: - has PACE/PACENET - renal function BG Readings - Blood sugars controlled. Reviewed ideal BG readings being between 100-150s at any time of the day. Patient did have one occurrence of a low blood sugar- she treated it appropriately. Itwas likely caused by pt not eating too much that day + being more active. Advised to continue to check blood sugars if symptomatic, as well as daily or every other day. A1c order placed to get completed before PCP appt next month. Medications - Reviewed current regimen, patient is adherent to regimen. Tolerating well. Has been at ozempic 1 mg once weekly for 4 weeks. Is agreeable to increase to 2 mg once weekly- script sent, and patient instructed to stay at 1 mg dose until she physically receives the shipment of ozempic 2 mg from mail order. Once she receives the package, then patient may double up on 1 mg pens until she uses up that supply, then start the 2 mg pens. If additional BG control is needed in future, SGLT2 would be next step considering patient's CKD. Patient was approved for PACE, so cost would not be an issue. We may consider discussing replacing metformin for jardiance at next visit. Diet, Exercise, Lifestyle - pt notes that her appetite is very small now that she is on ozempic . Discussed with patient , she states that her clothes are looser on her. Patient is agreeable to SMBG 1 time(s) daily. Patient aware to contact clinic if any hypoglycemia before next visit. MEDICATION CHANGES: yes, see below; [facility]) Diabetic Medications: Metformin 500 mg one tablet twice daily INC Ozempic 2 mg once weekly - Sundays eGFR 60 mL/min as of 01/15/23 HEALTH MAINTENANCE INTERVENTIONS: Labs: Ordered & Scheduled: HgA1c, BMP/CMP, and Urine Microalbumin Immunizations: Up to Date Foot Exam: due soon Eye Exam: Up to Date Annual Wellness Visit: Visit Scheduled for 10/03/2023 FOLLOW UP: Return to clinic in 12 weeks 10/03/2023 Mayra Torres [facility] Clinical Pharmacist - Bank Courier Medication Therapy Management Clinic 06/26/2023, 8:51 AM documented in this encounter Plan of Treatment Upcoming Encounters Date Type Department Care Team (Late st Contact Info) Description 07/22/2023 8:10 AM EDT Laboratory Laboratory, [place] [address] [place] [phone] [facility] Laboratory [address] [place] [address] 07/24/2023 8:20 AM EDT Office Visit [facility] [address] [place] [phone] Yenifer Krause PA-C [address] [place] [address] 08/09/2023 10:00 AM EDT [facility] [place] [phone] Fay Ferreira DO [address] [place] [address] 10/03/2023 8:50 AM EDT Office Visit [facility], [place] [address] [facility] [address] [facility] [address] [facility] [address] 10/03/2023 9:30 AM EDT Nurse Only Ancillary Department, [place] [address] [facility] [address] [place] Nurse Annual Wellness [address] [facility] [address] 02/20/2024 7:00 AM EDT Imaging Radiology [address] [address] Scheduled Orders Name Type Priority Associated Diagnoses Orde r Schedule ALBUMIN / CREATININE RATIO, URINE Lab Routine Type 2 diabetes mellitus with hemoglobin A1c goal of less than 7.0% (HCC) Type 2 diabetes mellitus with stage 3a chronic kidney disease (HCC) Expected: 07/22/2023 (Approximate), Expires: 06/25/2024 HEMOGLOBIN A1C Lab Routine Type 2 diabetes mellitus with hemoglobin A1c goal of less than 7.0% (HCC) Type 2 diabetes mellitus with stage 3a chronic kidney disease (HCC) Expected: 07/22/2023 (Approximate), Expires: 06/25/2024 BASIC METABOLIC PANEL Lab Routine Type 2 diabetes mellitus with hemoglobin A1c goal of less than 7.0% (HCC) Type 2 diabetes mellitus with stage 3a chronic kidney disease (HCC) Expected: 07/22/2023 (Approximate), Expires: 06/25/2024 Scheduled Procedures Name Priority Associated Diagnoses Date/Ti [...] Additional history exists CKD HGB USE SMARTSET 87956 01/16/202401/15, 07/21/2021, 02/06/2021, Additional history exists CKD PHOS USE SMARTSET 14296 01/16/202412/22, 07/21/2021, 12/22/2020, Additional history exists Mammogram [...] Directives occurred with: Not Discussed Care Teams Database Manager Relationship Specialty Start Date End Date Bridgette Forde DO [address] [place] [address] PCP - General 01/12/10 documented as of this encounter
--- OUTSIDE RECORDS SUMMARY | 2023-07-28 14:33 | External Medical Summary ---
Author Name Unknown Address Unknown Organization K01:LABORATORY [facility] - [address] [place] [address] Laboratory Report Ordering Provider Test Date Status JENN MADRID 07/22/2023 08:19:01 Final Observation Date Value Abnormality Reference (Units ) Status MYCODE SPECIMEN-SST 07/22/2023 08:19:01 Freezing of extracted DNA, whole blood and/or serum. Final Performing Location LABORATORY C - [address] [place] [address]
--- OUTSIDE RECORDS SUMMARY | 2023-07-28 14:33 | External Medical Summary ---
Author Name Unknown Address Unknown Organization K01:LABORATORY [facility] - [address] [place] [address] Laboratory Report Ordering Provider Test Date Status DALE MALONEY 07/22/2023 08:19:01 Final Observation Date Value Abnormality Reference (Units ) Status BUN 07/22/2023 08:19:01 16 6-20 (mg/dL) Final Creatinine 07/22/2023 08:19:01 1.1 Above high normal 0.5-1.0 (mg/dL) Final Glomerular filtration rate/1.73 sq M.predicted [Volume Rate/Area] in Serum, Plasma or Blood by Creatinine-based formula (CKD-EPI) 07/22/2023 08:19:01 52 Below low normal >=60 (mL/min) Final eGFR is calculated based on the CKD-EPI 2020 equation Sodium 07/22/2023 08:19:01 141 135-146 (m mol/L) Final Potassium 07/22/2023 08:19:01 4.2 3.5-5.1 (m mol/L) Final Cl 07/22/2023 08:19:01 101 98-107 (mm ol/L) Final CO2 07/22/2023 08:19:01 29 22-32 (mmo l/L) Final Anion gap 07/22/2023 08:19:01 11 7-15 (mmol /L) Final Glucose 07/22/2023 08:19:01 93 70-120 (mg /dL) Final Calcium 07/22/2023 08:19:01 9.7 8.4-10.2 ( mg/dL) Final Performing Location LABORATORY [facility] - [address] [place] [address]
--- OUTSIDE RECORDS SUMMARY | 2023-07-28 14:33 | External Medical Summary | Summary of Care ---
Author Name Unknown Organization [facility] Address [address] [place] [address] Phone [phone] Care Team Providers Care Utility Assembler Name Role Phone JorgitoBridgette millan Sary THAPA Primary Care Provider + [phone] Reason for Visit * Reason Comments Outpatient Testing Encounter Details Date Type Department Care Team (Late st Contact Info) Description 07/22/2023 8:10 AM EDT Laboratory Laboratory, [place] [address] [place] [address] [place], Laboratory [address] [place] [address] [place] Other*[id number]; Type 2 diabetes mellitus with hemoglobin A1c goal of less than 7.0% ([facility]); Type 2 diabetes mellitus with stage 3a chronic kidney disease ([facility]) Allergies Active Allergy Reactions Criticality Noted Date [...] (Pfizer) 03/09/2021 Pneumococcal Conjugate Vacci ne, 20-valent ([id number]) 07/23/2022 Pneumococcal Polysaccharide PPV23 (Pneumovax) 06/21/2020,11/19/2013 Seasonal [...] 8:20 AM EDT Office Visit [facility] Practice, [place] [address] [facility] [address] Yenifer Krause [facility]-C [address] [facility] [address] 08/09/2023 10:00 AM EDT Office Visit Sleep Disorders Ctr [facility] [address] [facility] [place] [address] Fay Ferreira DO [address] [place] [address] 10/03/2023 8:50 AM EDT Office Visit Pharmacy, [place] [address] [facility] [address] [place], [facility] [address] [facility] [address] 10/03/2023 9:30 AM EDT Nurse Only Ancillary Department, [place] [address] [facility] [address] [place], Nurse [facility] [address] [facility] [address] 02/20/2024 7:00 AM EDT Imaging Radiology [address] [facility] [place] [address] Pending Results Name Type Priority Associated Diagnoses Date /Time MYCODE SUBSEQUENT ADULT Lab Routine [facility] Other*[id number] 07/22/2023 8:19 AM EDT ALBUMIN / CREATININE RATIO, URINE Lab Routine Type 2 diabetes mellitus with hemoglobin A1c goal of less than 7.0% (HCC) Type 2 diabetes mellitus with stage 3a chronic kidney disease (HCC) 07/22/2023 2:03 PM EDT HEMOGLOBIN A1C Lab Routine Type 2 [...] EDT MYCODE SST1 Lab Routine [facility] Other*[id number] 07/22/2023 8:19 AM EDT MYCODE SST2 Lab Routine [facility] Other*[id number] 07/22/2023 8:19 AM EDT Scheduled Procedures Name [...] Additional history exists CKD HGB USE SMARTSET 30880 01/16/202401/15, 07/21/2021, 02/06/2021, Additional history exists CKD PHOS USE SMARTSET 64149 01/16/202412/22, 07/21/2021, 12/22/2020, Additional history exists Mammogram 02/19/2024 02/18/2023, 01/22, 02/16/2022, Additional history exists Colonoscopy 07/07/2025 07/08/2015 Colorectal Cancer Screening 07/07/2025 Lipid Panel 05/21/2027 05/21/2022, 040 04/2021, 12/08/2019, Additional history exists DXA Scan [...] this encounter Visit Diagnoses Diagnosis [facility] Other*[id number] Type 2 diabetes mellitus with hemoglobin A1c [...] Directives occurred with: Not Discussed Care Teams Utility Assembler Relationship Specialty Start Date End Date Bridgette Forde DO [address] [place] [id number] PCP - General 01/12/10 documented as of this encounter
--- OUTSIDE RECORDS SUMMARY | 2023-07-28 14:33 | External Medical Summary ---
Author Name Unknown Address Unknown Organization K01:LABORATORY [facility] [place] - [address] [place] [address] Laboratory Report Ordering Provider Test Date Status JOVANNIELFEGOYESI 07/22/2023 08:19:01 Final Observation Date Value Abnormality Reference (Units ) Status LDL, (direct) 07/22/2023 08:19:01 55 <=129 (mg/dL) Final LDL Cholesterol Reference Ra nges (mg/dL):
<70 Target level for high risk ASCVD patient
<100 Optimal for general population
100-129 Near optimal for general population
130-159 Borderline high
160-189 High
>=190 Very high Performing Location [facility] - [address] [place] [address]
--- OUTSIDE RECORDS SUMMARY | 2023-07-28 14:33 | External Medical Summary ---
Author Name Unknown Address Unknown Organization [id number]:[facility]ATORY [facility] [place] [address] [place] [address] Laboratory Report Ordering Provider Test Date Status MARY KATE BAIG 07/22/2023 08:19:01 Final Observation Date Value Abnormality Reference (Units ) Status Lipase 07/22/2023 08:19:01 64 Above high normal 13 -60 (U/L) Final Performing Location LAB[facility]ATORY [facility] - [address] [place] [address]
--- OUTSIDE RECORDS SUMMARY | 2023-07-28 14:33 | External Medical Summary | Summary of Care ---
Author Name Unknown Organization [facility] Address [address] [place] [address] Phone [phone] Care Team Providers Care Manual Arts Therapy Teacher Name Role Phone Bridgette Forde Primary Care Provider [phone] Encounter Details Date Type Department Care Team (Late st Contact Info) Description 05/02/2023 Population Health External Data Unspecified Department Allergies Active Allergy Reactions Criticality Noted Date Comments Lisinopril 02/15/2012 COUGH documented as of this encounter (statuses as of 05/06/2023) Medications Medication Sig Dispensed Refills Start Date [...] 03/07/2024 Active Furosemide 40 MG Oral Tablet (Lasix)Indications [...] MOUTH DAILY 90 Tablet 3 03/25/2023 Active documented as of this encounter (statuses as of 05/06/2023) Active Problems Problem Noted Date Diagnosed Date [...] as of this encounter (statuses as of 05/06/2023) Resolved Problems Problem Noted Date Diagnosed Date [...] as of this encounter (statuses as of 05/06/2023) Immunizations Name Administration Dates Next Due COVID-19 mRNA, LNP-s, No Pre serve, 2-Dose Series (Pfizer) 03/09/2021 Pneumococcal Conjugate Vacci ne, 20-valent ([id number]) 07/23/2022 Pneumococcal Polysaccharide PPV23 (Pneumovax) 06/21/2020,11/19/2013 Seasonal [...] Description 06/26/2023 9:00 AM EST Pharmacy Pharmacy, [place] [address] [place] [address] [facility] [address] [place] [address] 07/24/2023 8:20 AM EDT Office Visit Family Practice, [facility] [address] [place] [address] Yenifer Krause PA-C [address] [facility] [place] [address] 08/09/2023 10:00 AM EDT Office Visit Sleep Disorders Ctr [facility] [address] [facility] [place] [phone] Fay Ferreira, [address] [facility] [place] [address] 10/03/2023 9:30 AM EDT Nurse Only Ancillary Department, [place] [address] [facility] [place] [address] [place], Nurse [facility] Well[facility] [address] [facility] [place] [address] 02/20/2024 7:00 AM EDT Imaging Radiology [address] 132 [facility] [place] [address] Scheduled Procedures Name Priority Associated Diagnoses Date/Ti [...] Additional history exists CKD HGB USE SMARTSET 65021 01/16/202401/15, 07/21/2021, 02/06/2021, Additional history exists CKD PHOS USE SMARTSET 78257 01/16/202412/22, 07/21/2021, 12/22/2020, Additional history exists Mammogram [...] Directives occurred with: Not Discussed Care Teams Manual Arts Therapy Teacher Relationship Specialty Start Date End Date Bridgette Forde DO [address] [place] [address] PCP - General 01/12/10 documented as of this encounter
--- OUTSIDE RECORDS SUMMARY | 2023-07-28 14:33 | External Medical Summary ---
Author Name Unknown Address Unknown Organization K01:[place] [facility] [place] [address] [facility] [address] Laboratory Report Ordering Provider Test Date Status DALE MALONEY 07/22/2023 08:19:01 Final Observation Date Value Abnormality Reference (Units ) Status HbA1C 07/22/2023 08:19:01 5.9 Above high normal 4. 0-5.6 (%) Final The use of HbA1c to monitor glycemic status is based on normal hemoglobin and HbA composition. This test should not be used in patients with abnormal hemoglobin that affects the half life of the red blood cell or the in vivo glycation rates. Glucose, estimated average 07/22/2023 08:19:01 123 <126 (mg/dL) Final Performing Location [facility] [place] [facility] [address] [facility] [address]
--- OUTSIDE RECORDS SUMMARY | 2023-07-28 14:34 | External Medical Summary | Summary of Care ---
Author Name Unknown Organization [facility] Address [address] [place] [address] Phone [phone] Care Team Providers Care Graphic Editor Name Role Phone Bridgette Forde DO Primary Care Provider [phone] Reason for Visit * Reason Onset Date Comments Medication Refill 03/24/2023 Encounter Details Date Type Department Care Team (Late st Contact Info) Description 03/24/2023 Ref[facility] [address] [place] [address] Bridgette Forde DO [address] [place] [address] HTN, goal below 130/80 Allergies Active Allergy Reactions Criticality Noted Date Comments Lisinopril 02/15/2012 COUGH documented as of this encounter (statuses as of 03/25/2023) Medications Medication Sig Dispensed Refills Start Date End Date Status Meclizine HCl 25 MG Oral Tablet (Antivert)Indica tions:Vertigo One pill by mouth up to 3 times a day as needed for dizziness 30 Tablet 1 09/21/2021 Active Atorvastatin Calcium 20 MG Oral Tablet (Lipitor)Indicat ions:Dyslipidemi a, goal LDL below 70 TAKE ONE TABLET BY MOUTH EVERY MORNING 100 Tablet 2 10/30/2022 10/30/2023 Active metFORMIN HCl 500 MG Oral Tablet (Glucophage)Ledy cations:Type 2 diabetes mellitus with hemoglobin A1c goal of less than 7.0% (HCC) TAKE ONE TABLET BY MOUTH TWICE A DAY 180 Tablet 1 02/08/2023 02/08/2024 Active Losartan Potassium 100 MG Oral Tablet (Cozaar)Indicati ons:HTN, goal below 130/80 TAKE ONE TABLET BY MOUTH EVERY MORNING 90 Tablet 1 02/08/2023 02/08/2024 Active Ozempic (0.25 or 0.5 MG/DOSE) 2 MG/3ML Solution Pen-injector (Semaglutide(0.2 5 or 0.5MG/DOS))Indic ations:Type 2 diabetes mellitus with hemoglobin A1c goal of less than 7.0% ([facility]) Inject 0.5 mg under the skin once a week. 9 mL 0 02/13/2023 Active cloNIDine HCl 0.1 MG Oral Tablet (Catapres)Indica tions:HTN, goal below 130/80 TAKE ONE TABLET BY MOUTH TWICE A DAY 180 Tablet 1 03/08/2023 03/07/2024 Active Furosemide 40 MG Oral Tablet (Lasix)Indicatio ns:HTN, goal below 130/80 TAKE ONE TABLET BY MOUTH EVERY DAY IN THE MORNING 90 Tablet 2 03/08/2023 03/07/2024 Active amLODIPine Besylate 5 MG Oral Tablet (Norvasc)Indicat ions:HTN, goal below 130/80 TAKE ONE TABLET BY MOUTH EVERY DAY IN THE MORNING 90 Tablet 3 03/18/2023 Active Potassium Chloride Mira ER 20 MEQ Oral Tablet Extended Release (Klor-Con M20)Indications: HTN, goal below 130/80 TAKE 1 TABLET BY MOUTH DAILY 90 Tablet 3 03/25/2023 Active Potassium Chloride Mira ER 20 MEQ Oral Tablet Extended Release (Klor-Con M20)Indications: HTN, goal below 130/80 TAKE 1 TABLET BY MOUTH DAILY 90 Tablet 3 01/31/2022 03/24/2023 Discontinued (Refill) documented as of this encounter (statuses as of 03/25/2023) Active Problems Problem Noted Date Diagnosed Date [...] as of this encounter (statuses as of 03/25/2023) Resolved Problems Problem Noted Date Diagnosed Date [...] as of this encounter (statuses as of 03/25/2023) Immunizations Name Administration Dates Next Due COVID-19 mRNA, LNP-s, No Pre serve, 2-Dose Series (Pfizer) 03/09/2021 Pneumococcal Conjugate Vacci ne, 20-valent ([id number]) 07/23/2022 Pneumococcal Polysaccharide PPV23 (Pneumovax) 06/21/2020,11/19/2013 SEASONAL INFLUENZA, PF, 6 M & Above, IM , (FLULAVAL or FLUZONE) 01/20/2021,01/22/2020,01/30/2018,02/06 Seasonal Influenza, Quadriva lent Hd (Fluzone [...] on file documented as of this encounter Miscellaneous Notes * Telephone Encounter - Jessica Iqbal [facility] - 03/25/2023 12:58 PM ESTSigned Prescriptions: Disp Refills Potassium Chloride Mira ER 20 MEQ Oral Tab*90 Tab*3 Sig: TAKE 1 TABLET BY MOUTH DAILYAuthorizing Provider: YENIFER KRAUSE User: JESSICA IQBAL-------- documented in this encounter Plan of Treatment Upcoming Encounters Date Type Department Care Team (Late st Contact Info) Description 04/24/2023 9:00 AM EST Laboratory [facility], [place] [address] [facility] [phone] [place] [facility] [address] [facility] [address] 04/26/2023 8:30 AM EST Office Visit Pharmacy, [place] [address] [facility] [address] [facility] [address] [facility] [address] 07/24/2023 8:20 AM EDT Office Visit Family Practice, [place] [address] [facility] [address] Yenifer Krause PA-C [address] [facility] [address] 08/09/2023 10:00 AM EDT Office Visit Sleep Disorders Ctr [facility] [address] [facility] [place] [phone] Fay Ferreira, 132 [facility] [place] [address] 10/03/2023 9:30 AM EDT Nurse Only Ancillary Department, [place] [address] [place] [facility] [place] [address] [place], Nurse [facility] [address] [facility] [place] [address] 02/20/2024 7:00 AM EDT Imaging Radiology [address] [facility] [place] [address] Scheduled Procedures Name Priority Associated Diagnoses Date/Ti [...] 07/16/2023 01/15/2023, 04/24, 01/22/2022, Additional history exists HbA1c 07/16/2023 01/15/2023, 04/24, 01/22/2022, Additional history exists Diabetic Foot Exam 07/24/2023 07/23/2022, 0 06/21/2020, 03/17/2018, Additional history exists Diabetic Eye Exam 08/08/2023 08/07/2022, , 01/11/2017, Additional history exists Depression Screening 09/28/2023 09/27/2022 B-12 01/16/2024 01/15/2023, 04/0 04/2021, 12/22/2020, Additional history exists CKD HGB USE SMARTSET 08747 01/16/202401/15, 07/21/2021, 02/06/2021, Additional history exists CKD PHOS USE SMARTSET 55851 01/16/202412/22, 07/21/2021, 12/22/2020, Additional history exists Mammogram [...] as of this encounter Visit Diagnoses Diagnosis HTN, goal below 130/80 Unspecified essential hypertension documented in this encounter Advance Directives Latest Code Status on File Code Status Date Activated Date Inactivated Comments Full Code 02/17/2021 11:44 AM 02/17/2021 4:59 PM Th is order reflects the patients wishes and were consensually agreed upon. Question Answer Comments Discussion of Advance Directives occurred with: Not Discussed Care Teams Graphic Editor Relationship Specialty Start Date End Date Bridgette Forde DO [address] [place] [address] PCP - General 01/12/10 documented as of this encounter
--- OUTSIDE RECORDS SUMMARY | 2023-07-28 14:34 | External Medical Summary ---
Author Name Unknown Address Unknown Organization K01:LABORATORY [facility] [place] - [address] [place] [address] Laboratory Report Ordering Provider Test Date Status MARY KATE BAIG 04/24/2023 08:58:25 Final Observation Date Value Abnormality Reference (Units ) Status TSH 04/24/2023 08:58:25 1.74 0.27-4.20 (uIU/mL) Final Performing Location LAB[facility] - [address] [place] [address]
--- OUTSIDE RECORDS SUMMARY | 2023-07-28 14:34 | External Medical Summary | Summary of Care ---
Author Name Unknown Organization [facility] Address [address] [place] [address] Phone [phone] Care Team Providers Care Crew Car Driver Name Role Phone Bridgette Forde Sary THAPA Primary Care Provider [phone] Reason for Visit * Reason Onset Date Comments Medication Discussion 02/13/2023 Encounter Details Date Type Department Care Team (Late st Contact Info) Description 02/13/2023 Telephone Pharmacy, [place] [address] [place], [place] [phone] Mayra Torres, [facility] [address] [place] [address] Medication Discussion Allergies Active Allergy Reactions Criticality Noted Date Comments Lisinopril 02/15/2012 COUGH documented as of this encounter (statuses as of 02/13/2023) Medications Medication Sig Dispensed Refills Start Date End Date Status Meclizine HCl 25 MG Oral Tablet (Antivert)Indica tions:Vertigo One pill by mouth up to 3 times a day as needed for dizziness 30 Tablet 1 09/21/2021 Active Potassium Chloride Mira ER 20 MEQ Oral Tablet Extended Release (Klor-Con M20)Indications: HTN, goal below 130/80 TAKE 1 TABLET BY MOUTH DAILY 90 Tablet 3 01/31/2022 Active cloNIDine HCl 0.1 MG Oral Tablet (Catapres)Indica tions:HTN, goal below 130/80 TAKE ONE TABLET BY MOUTH TWICE A DAY 180 Tablet 1 08/15/2022 Active Furosemide 40 MG Oral Tablet (Lasix)Indicatio ns:HTN, goal below 130/80 TAKE ONE TABLET BY MOUTH EVERY DAY IN THE MORNING 90 Tablet 2 05/29/2022 4 Active amLODIPine Besylate 5 MG Oral Tablet (Norvasc)Indicat ions:HTN, goal below 130/80 TAKE ONE TABLET BY MOUTH EVERY DAY IN THE MORNING 90 Tablet 2 05/29/2022 4 Active Atorvastatin Calcium 20 MG Oral Tablet (Lipitor)Indicat ions:Dyslipidemi a, goal LDL below 70 TAKE ONE TABLET BY MOUTH EVERY MORNING 100 Tablet 2 10/30/2022 4 Active metFORMIN HCl 500 MG Oral Tablet (Glucophage)Ledy cations:Type 2 diabetes mellitus with hemoglobin A1c goal of less than 7.0% (HCC) TAKE ONE TABLET BY MOUTH TWICE A DAY 180 Tablet 1 02/08/2023 4 Active Losartan Potassium 100 MG Oral Tablet (Cozaar)Indicati ons:HTN, goal below 130/80 TAKE ONE TABLET BY MOUTH EVERY MORNING 90 Tablet 1 02/08/2023 4 Active Ozempic (0.25 or 0.5 MG/DOSE) 2 MG/3ML Solution Pen-injector (Semaglutide(0.2 5 or 0.5MG/DOS))Indic ations:Type 2 diabetes mellitus with hemoglobin A1c goal of less than 7.0% (HCC) Inject 0.5 mg under the skin once a week. 9 mL 0 02/13/2023 Active Ozempic (0.25 or 0.5 MG/DOSE) 2 MG/1.5ML Solution Pen-injector (Semaglutide(0.2 5 or 0.5MG/DOS))Indic ations:Type 2 diabetes mellitus with hemoglobin A1c goal of less than 7.0% (HCC),Morbid (severe) obesity due to excess calories (HCC) Inject 0.25 mg under the skin once a week. 1.5 mL 0 01/22/2023 3 Discontinued documented as of this encounter (statuses as of 02/13/2023) Active Problems Problem Noted Date Diagnosed Date [...] as of this encounter (statuses as of 02/13/2023) Resolved Problems Problem Noted Date Diagnosed Date [...] as of this encounter (statuses as of 02/13/2023) Immunizations Name Administration Dates Next Due COVID-19 mRNA, LNP-s, No Pre serve, 2-Dose Series (Pfizer) 03/09/2021 Pneumococcal Conjugate Vacci ne, 20-valent ([id number]) 07/23/2022 Pneumococcal Polysaccharide PPV23 (Pneumovax) 06/21/2020,11/19/2013 SEASONAL [...] encounter Miscellaneous Notes * Telephone Encounter - Mayra Torres RPh - 02/13/2023 11:22 AM EDT Patient Phone Numbers Spoke to patient. She states that she does not qualify for PACE and that they suggested she call again in April to re-apply. Will send 3 mo supply of ozempic to [facility], reassess in April if plan is to continue to get from [facility] with PACE/PACENET to protect pt from donut hole, or if NovoNordisk PAP should be pursued. Follow up 04/26/2023 as scheduled. Mayra Torres, PharmD Clinical Pharmacist Medication Therapy Disease Management 02/13/2023, 11:26 AM documented in this encounter Plan of Treatment Upcoming Encounters Date Type Department Care Team (Late st Contact Info) Description 02/18/2023 7:15 AM EDT Imaging Radiology [facility] [address] [facility] [address] [facility] [place] [address] 04/24/2023 9:00 AM EST Laboratory Laboratory, [place] [address] [facility] [place] [phone] [place], Laboratory [address] [facility] [address] 04/26/2023 8:30 AM EST Office Visit Pharmacy, [place] [address] [address] [place], [facility] [address] [address] 07/24/2023 8:20 AM EDT Office Visit Family Practice, [place] [address] [phone] Yenifer Krause [facility]-C [address] [facility] [address] 08/09/2023 10:00 AM EDT Office Visit Sleep Disorders Ctr [facility] [address] [facility] [place] [phone] Fay Ferreira DO [address] [facility] [place] [address] 10/03/2023 9:30 AM EDT Nurse Only Ancillary Department, [place] [address] [address] [place], Nurse Annual Wellness [address] [place] [address] Scheduled Procedures Name Priority Associated Diagnoses Date/Ti me COLONOSCOPY FLEXIBLE PROXIMAL DIAGNOSTIC Recall Colon cancer screening Health Maintenance Due Date Last Done Comments Cologuard 1997 Fecal Occult Blood Test 1997 Sigmoidoscopy 1997 Hepatitis B (1 of 3 - Risk 3-dose series) 2012 COVID-19 Vaccine ( season) 2022 03/09/2021, 07/27/2020, 07/06/2020 Mammogram 02/16/2023 02/16/2022, 10/0 09/2020, 12/17/2019, Additional history exists Albumin/Creatinine Ratio 05/21/2023 023, 07/25/2021, 03/17/2018, Additional history exists GFR 07/16/2023 01/15/2023, 04/24, 01/22/2022, Additional history exists HbA1c 07/16/2023 01/15/2023, 04/24, 01/22/2022, Additional history exists Diabetic Foot Exam 07/24/2023 07/23/2022, 0 06/21/2020, 03/17/2018, Additional history exists DIABETES-EYE EXAM 08/08/2023 08/07/2022, , 01/11/2017, Additional history exists Depression Screening 09/28/2023 09/27/2022 B-12 01/16/2024 01/15/2023, 04/0 04/2021, 12/22/2020, Additional history exists CKD HGB USE SMARTSET 89114 01/16/202401/15, 07/21/2021, 02/06/2021, Additional history exists CKD PHOS USE SMARTSET 90547 01/16/2024 09/2 09/2022, 07/21/2021, 12/22/2020, Additional history exists Colonoscopy 07/07/2025 07/08/2015 Colorectal [...] goal of less than 7.0% (HCC)- Primary Morbid (severe) obesity due to excess calories (HCC) Type 2 diabetes mellitus with stage 3a chronic kidney disease (HCC) documented in this encounter Advance Directives Latest Code Status on File Code Status Date Activated Date Inactivated Comments Full Code 02/17/2021 11:44 AM 02/17/2021 4:59 PM Th is order reflects the patients wishes and were consensually agreed upon. Question Answer Comments Discussion of Advance Directives occurred with: Not Discussed Care Teams Crew Car Driver Relationship Specialty Start Date End Date Bridgette Forde DO [address] [place] [facility] [place] [address] PCP - General 01/12/10 documented as of this encounter
--- OUTSIDE RECORDS SUMMARY | 2023-07-28 14:34 | External Medical Summary | Summary of Care ---
Author Name Unknown Organization [facility] Address [address] [place] [address] Phone [phone] Care Team Providers Care Optics Test Technician Name Role Phone Geraldo Nielson DO Primary Care Provider [phone] Reason for Visit * Reason Comments Medication Refill Encounter Details Date Type Department Care Team (Late st Contact Info) Description 03/08/2023 Refill [facility] [address] [place] [address] Geraldo Nielson DO [address] [place] [address] HTN, goal below 130/80 Allergies Active Allergy Reactions Criticality Noted Date Comments Lisinopril 02/15/2012 COUGH documented as of this encounter (statuses as of 03/08/2023) Medications Medication Sig Dispensed Refills Start Date [...] MOUTH DAILY 90 Tablet 3 01/31/2022 Active amLODIPine Besylate 5 MG Oral Tablet (Norvasc)Indicat ions:HTN, goal below 130/80 TAKE ONE TABLET BY MOUTH EVERY DAY IN THE MORNING 90 Tablet 2 05/29/2022 05/29/2023 Active Atorvastatin Calcium 20 MG Oral Tablet [...] MORNING 90 Tablet 2 03/08/2023 03/07/2024 Active cloNIDine HCl 0.1 MG Oral Tablet (Catapres)Indica tions:HTN, goal below 130/80 TAKE ONE TABLET BY MOUTH TWICE A DAY 180 Tablet 1 08/15/2022 03/08/2023 Discontinued (Refill) documented as of this encounter (statuses as of 03/08/2023) Active Problems Problem Noted Date Diagnosed Date [...] as of this encounter (statuses as of 03/08/2023) Resolved Problems Problem Noted Date Diagnosed Date [...] as of this encounter (statuses as of 03/08/2023) Immunizations Name Administration Dates Next Due COVID-19 mRNA, LNP-s, No Pre serve, 2-Dose Series (Pfizer) 03/09/2021 Pneumococcal Conjugate Vacci ne, 20-valent ([id number]) 07/23/2022 Pneumococcal Polysaccharide PPV23 (Pneumovax) 06/21/2020,11/19/2013 SEASONAL [...] encounter Miscellaneous Notes * Telephone Encounter - Geraldo Nielson DO - 03/08/2023 1:14 PM ESTSigned Prescriptions: Disp Refills cloNIDine HCl 0.1 MG Oral Tablet (Catapres)180 Ta*1 Sig: TAKE ONE TABLET BY MOUTH TWICE A DAY Authorizing Provider: GERALDO NIELSON * Telephone Encounter - Johnny Marx RPh - 03/08/2023 10:50 AM EST Refill pharmacists currently not authorized to approve refills for this class of medication per refill protocol. Please approve if appropriate. Thanks, Johnny Marx, PharmD Clinical Pharmacist TelePharmacy 03/08/2023 10:50 AM * Telephone Encounter - Johnny Marx RPh - 03/08/2023 10:50 AM ESTPending Prescriptions: Disp Refills cloNIDine HCl 0.1 MG Oral Tablet (Catapres)180 Ta*1 Sig: TAKE ONE TABLET BY MOUTH TWICE A DAY documented in this encounter Plan of Treatment Upcoming Encounters Date Type Department Care Team (Late st Contact Info) Description 04/24/2023 9:00 AM EST Laboratory Laboratory, [place] [address] [facility], [place] [phone] [place], Laboratory [address] [facility], [place] [address] 04/26/2023 8:30 AM EST Office Visit Pharm[facility], [place] [address] [facility] [address] [place], [facility] [address] [facility] [address] 07/24/2023 8:20 AM EDT Office Visit Family Practice, [place] [address] [facility], [place] [phone] Yenifer Krause [facility]C [address] [facility] [id number] 08/09/2023 10:00 AM EDT Office Visit Sleep Disorders Ctr [facility] [address] [place] [phone] Fay Ferreira, [address] [place] [address] 10/03/2023 9:30 AM EDT Nurse Only Ancillary Department, [place] [address] [facility] [address] [place], [facility] [address] [facility] [address] 02/20/2024 7:00 AM EDT Imaging Radiology [address] [facility] [place] [address] Scheduled Procedures Name Priority Associated Diagnoses Date/Ti [...] Additional history exists CKD HGB USE SMARTSET 67523 01/16/202401/15, 07/21/2021, 02/06/2021, Additional history exists CKD PHOS USE SMARTSET 33996 01/16/202412/22, 07/21/2021, 12/22/2020, Additional history exists Mammogram [...] Directives occurred with: Not Discussed Care Teams Optics Test Technician Relationship Specialty Start Date End Date Geraldo Nielson DO [address] [place] [address] PCP - General 01/12/10 documented as of this encounter
--- OUTSIDE RECORDS SUMMARY | 2023-07-28 14:34 | External Medical Summary | Summary of Care ---
Author Name Unknown Organization [facility] Address [address] [place] [address] Phone [phone] Care Team Providers Care Resident Care Coordinator Name Role Phone JorgitoGeraldo millan Sary THAPA Primary Care Provider + [phone] Reason for Visit * Reason Comments Medication Refill Encounter Details Date Type Department Care Team (Late st Contact Info) Description 03/08/2023 Refill [facility] [address] [place] [address] Yenifer Krause PA-C [address] [place] [address] HTN, goal below 130/80 Allergies [...] TWICE A DAY 180 Tablet 1 08/15/2022 08/15/2023 Active amLODIPine Besylate 5 MG Oral Tablet (Norvasc)Indicat ions:HTN, goal below 130/80 TAKE ONE TABLET BY MOUTH EVERY DAY IN THE MORNING 90 Tablet 2 05/29/2022 05/29/2023 Active Atorvastatin Calcium 20 MG Oral Tablet (Lipitor)Indicat ions:Dyslipidemi a, goal LDL below 70 TAKE ONE TABLET BY MOUTH EVERY MORNING 100 Tablet 2 10/30/2022 10/30/2023 Active metFORMIN HCl 500 MG Oral Tablet (Glucophage)Eldy cations:Type 2 diabetes mellitus with hemoglobin A1c [...] a week. 9 mL 0 02/13/2023 Active Furosemide 40 MG Oral Tablet (Lasix)Indicatio ns:HTN, goal below 130/80 TAKE ONE TABLET BY MOUTH EVERY DAY IN THE MORNING 90 Tablet 2 03/08/2023 03/07/2024 Active Furosemide 40 MG Oral Tablet (Lasix)Indicatio ns:HTN, goal below 130/80 TAKE ONE TABLET BY MOUTH EVERY DAY IN THE MORNING 90 Tablet 2 05/29/2022 03/08/2023 Discontinued (Refill) documented as of this [...] (Pfizer) 03/09/2021 Pneumococcal Conjugate Vacci ne, 20-valent ([id number]) 07/23/2022 Pneumococcal Polysaccharide PPV23 (Pneumovax) 06/21/2020,11/19/2013 SEASONAL [...] encounter Miscellaneous Notes * Telephone Encounter - Johnny Marx RPh - 03/08/2023 10:52 AM ESTSigned Prescriptions: Disp Refills Furosemide 40 MG Oral Tablet (Lasix) 90 Tab*2 Sig: TAKE ONE TABLET BY MOUTH EVERY DAY IN THE MORNINGAuthorizing Provider: GERALDO NIELSON User: JAZMYN MARX documented in this encounter Plan of Treatment Upcoming Encounters Date Type Department Care Team (Late st Contact Info) Description 04/24/2023 9:00 AM EST [facility] [place] [address] [facility] [phone] [facility] [address] [facility] [address] 04/26/2023 8:30 AM EST Office Visit Pharmacy, [place] [address] [facility] [address] [facility] [address] [facility] [address] 07/24/2023 8:20 AM EDT Office Visit Family Practice, [place] [address] [facility] [phone] Yenifer Krause [facility]C [address] [facility] [address] 08/09/2023 10:00 AM EDT Office Visit Sleep Disorders Ctr [facility] [address] [facility] [place] [phone] Fay Ferreira, [address] [facility] [place] [address] 10/03/2023 9:30 AM EDT Nurse Only Ancillary Department, [place] [address] [facility] [place] [address] [place], Nurse [facility] [address] [facility] [address] 02/20/2024 7:00 AM EDT Imaging Radiology [address] [facility] [place] [address] Scheduled Procedures Name Priority Associated Diagnoses Date/Ti [...] Additional history exists CKD HGB USE SMARTSET 23099 01/16/202401/15, 07/21/2021, 02/06/2021, Additional history exists CKD PHOS USE SMARTSET 06070 01/16/202412/22, 07/21/2021, 12/22/2020, Additional history exists Mammogram [...] Directives occurred with: Not Discussed Care Teams Resident Care Coordinator Relationship Specialty Start Date End Date Geraldo Nielson DO [address] [place] [address] PCP - General 01/12/10 documented as of this encounter
--- OUTSIDE RECORDS SUMMARY | 2023-07-28 14:34 | External Medical Summary ---
Author Name Unknown Address Unknown Organization K01:[facility] [place] - [address] [facility] [address] Laboratory Report Ordering Provider Test Date Status MARY KATE BAIG 04/24/2023 08:58:25 Final Observation Date Value Abnormality Reference (Units ) Status Lipase 04/24/2023 08:58:25 66 Above high normal 13 -60 (U/L) Final Performing Location LAB[facility]ORY [facility] - [address] [place] [address]
--- OUTSIDE RECORDS SUMMARY | 2023-07-28 14:34 | External Medical Summary ---
Author Name Unknown Address Unknown Organization K01:[facility]ATORY [facility] - [address] [place] [address] Laboratory Report Ordering Provider Test Date Status JOVANNIELFEGOYESI 04/24/2023 08:58:25 Final Observation Date Value Abnormality Reference (Units ) Status T4, Free 04/24/2023 08:58:25 1.1 0.9-1.7 (n g/dL) Final Performing Location [facility] - [address] [place] [address]
--- OUTSIDE RECORDS SUMMARY | 2023-07-28 14:34 | External Medical Summary | Summary of Care ---
Author Name Unknown Organization [facility] Address [address] [place] [address] Phone [phone] Care Team Providers Care Chief Marketing Officer Name Role Phone JorgitoBridgette millan Sary THAPA Primary Care Provider + [phone] Reason for Visit * Reason Comments Outpatient Testing Encounter Details Date Type Department Care Team (Late st Contact Info) Description 04/24/2023 9:00 AM EST Laboratory Laboratory, [place] [address] [place] [address] [place], Laboratory [address] [place] [address] Morbid (severe) obesity due to excess calories (HCC); Type 2 diabetes mellitus with hemoglobin A1c goal of less than 7.0% (HCC) Allergies Active Allergy Reactions Criticality Noted Date Comments Lisinopril 02/15/2012 COUGH documented as of this encounter (statuses as of 04/24/2023) Medications Medication Sig Dispensed Refills Start Date [...] as of this encounter (statuses as of 04/24/2023) Active Problems Problem Noted Date Diagnosed Date [...] as of this encounter (statuses as of 04/24/2023) Resolved Problems Problem Noted Date Diagnosed Date [...] as of this encounter (statuses as of 04/24/2023) Immunizations Name Administration Dates Next Due COVID-19 mRNA, LNP-s, No Pre serve, 2-Dose Series (Pfizer) 03/09/2021 Pneumococcal Conjugate Vacci ne, 20-valent ([id number]) 07/23/2022 Pneumococcal Polysaccharide PPV23 (Pneumovax) 06/21/2020,11/19/2013 Seasonal [...] st Contact Info) Description 05/03/2023 9:10 AM EST [facility] [place] [address] [facility] [address] [place] [facility] [address] [facility] [address] 07/24/2023 8:20 AM EDT Office Visit Family Practice, [place] [address] [facility] [phone] [facility]C [address] [facility] [address] 08/09/2023 10:00 AM EDT [facility] [address] [facility] [phone] Fay Ferreira, [address] [facility] [place] [address] 10/03/2023 9:30 AM EDT Nurse Only Ancillary Department, [place] [address] [facility] [address] [place], Nurse [facility] [address] [facility] [address] 02/20/2024 7:00 AM EDT Imaging Radiology [address] [facility] [place] [address] Pending Results Name Type Priority Associated Diagnoses Date /Time TSH Lab Routine Morbid (severe) obesity due to excess calories (HCC) 04/24/2023 8:58 AM EST T4, FREE Lab Routine Morbid (severe) obesity due to excess calories (HCC) 04/24/2023 8:58 AM EST LIPASE Lab Routine Type 2 diabetes mellitus with hemoglobin A1c goal of less than 7.0% (HCC) Morbid (severe) obesity due to excess calories (HCC) 04/24/2023 8:58 AM EST HEMOGLOBIN A1C Lab Routine Type 2 diabetes mellitus with hemoglobin A1c goal of less than 7.0% (HCC) 04/24/2023 8:58 AM EST Scheduled Procedures Name Priority Associated Diagnoses Date/Ti [...] Additional history exists CKD HGB USE SMARTSET 89755 01/16/202401/15, 07/21/2021, 02/06/2021, Additional history exists CKD PHOS USE SMARTSET 94827 01/16/2024 09/2 09/2022, 07/21/2021, 12/22/2020, Additional history exists Mammogram 02/19/2024 02/18/2023, 1011/2021, 01/25/2021, Additional history exists Colonoscopy 07/07/2025 07/08/2015 [...] as of this encounter Visit Diagnoses Diagnosis Morbid (severe) obesity due to excess calories (HCC) Type 2 diabetes mellitus with hemoglobin A1c goal of less than 7.0% (HCC) documented in this encounter Advance Directives Latest Code Status on File Code Status Date Activated Date Inactivated Comments Full Code 02/17/2021 11:44 AM 02/17/2021 4:59 PM Th is order reflects the patients wishes and were consensually agreed upon. Question Answer Comments Discussion of Advance Directives occurred with: Not Discussed Care Teams Chief Marketing Officer Relationship Specialty Start Date End Date Bridgette Forde DO [address] [facility] [address] PCP - General 01/12/10 documented as of this encounter
--- OUTSIDE RECORDS SUMMARY | 2023-07-28 14:34 | External Medical Summary | Summary of Care ---
Author Name Unknown Organization [facility] Address [address] [place] [address] Phone [phone] Care Team Providers Care Quantometer Operator Name Role Phone JorgitoJ Luis millandannielle Okeefe DO Primary Care Provider + [phone] Reason for Visit * Reason Comments Dosage Adjustment In Person (Anticoag Cl inic) Diabetes Follow-Up * Evaluate & Treat - Unlimited Visits (Within 30 days (routine)) - Authorized Specialty Diagnoses / Procedures Referred By Ava robbins Referred To Contact Pharmacist / Pharmacy Diagnoses Type 2 diabetes mellitus with hemoglobin A1c goal of less than 7.0% (HCC) Morbid (severe) obesity due to excess calories (HCC) Yenifer Krause PA-C [address] [place] [address] Referral ID Status Reason Start Date Expiration Date Visits Requested Visits Authorized [id number] Authorized Specialty Services Required 3 99 99 Encounter Details Date Type Department Care Team Description 02/05/2023 Office Visit Pharmacy, [facility] [address] [place] [address] [facility] [address] [place] [address] Type 2 diabetes mellitus with hemoglobin A1c goal of less than 7.0% (HCC)*; Type 2 diabetes mellitus with stage 3a chronic kidney disease, without long-term current use of insulin (HCC) Allergies Active Allergy Reactions Severity Noted Date Comments Lisinopril 02/15/2012 COUGH documented as of this encounter (statuses as of 02/05/2023) Medications Medication Sig Dispensed Refills Start Date [...] MOUTH DAILY 90 Tablet 3 01/31/2022 Active Losartan Potassium 100 MG Oral Tablet (Cozaar)Indicati ons:HTN, goal below 130/80 TAKE ONE TABLET BY MOUTH EVERY MORNING 90 Tablet 1 08/27/2022 4 Active cloNIDine HCl 0.1 MG Oral Tablet (Catapres)Indica tions:HTN, goal below 130/80 TAKE ONE TABLET BY MOUTH TWICE A DAY 180 Tablet 1 08/15/2022 4 Active metFORMIN HCl 500 MG Oral Tablet (Glucophage)Ledy cations:Type 2 diabetes mellitus with hemoglobin A1c goal of less than 7.0% (HCC) TAKE ONE TABLET BY MOUTH TWICE A DAY 180 Tablet 1 07/16/2022 4 Active Furosemide 40 MG Oral Tablet (Lasix)Indicatio [...] MORNING 100 Tablet 2 10/30/2022 4 Active Ozempic (0.25 or 0.5 MG/DOSE) 2 MG/1.5ML Solution Pen-injector (Semaglutide(0.2 5 or 0.5MG/DOS))Indic ations:Type 2 diabetes mellitus with hemoglobin A1c goal of less than 7.0% (HCC),Morbid (severe) obesity due to excess calories (HCC) Inject 0.25 mg under the skin once a week. 1.5 mL 0 01/22/2023 Active GLUCOMETER ELITE CLASSIC KITIndications:D M type 2, goal A1c below 7 use to check blood sugars twice daily 1 Kit 0 11/17/2010 3 Discontinued ONETOUCH ULTRA SYSTEM W/DEVICE KITIndications:D M type 2, goal A1c below 7 Use up to four times a day as directed 1 Kit 0 11/19/2013 3 Discontinued ONETOUCH ULTRA BLUE STRPIndications: DM type 2, goal A1c below 7 Use up to four times a day as directed 100 Strip 11 11/19/2013 3 Discontinued ONETOUCH ULTRASOFT LANCETS MISCIndications: DM type 2, goal A1c below 7 Use up to four times a day as directed 1 Box 11 11/19/2013 3 Discontinued documented as of this encounter (statuses as of 02/05/2023) Active Problems Problem Noted Date HTN, goal below 130/80 07/23/2022 Chronic kidney disease, stage 3a 023 Overview: Per CKD protocol Type 2 diabetes mellitus with stage 3a c hronic kidney disease 06/04/2022 Overview: Per CKD protocol Class 3 severe obesity in adult 01/27/20 21 Overview: 51 DIVINA (obstructive sleep apnea) 05/21/2011 Overview: RDI on baseline 121 On bipap auto now DME: [facility] Dyslipidemia, goal LDL below 70 01/30/20 11 Type 2 diabetes mellitus with hemoglobin A1c goal of less than 7.0% 12/01/2010 Overview: ICD-10 update of inactive term documented as of this encounter (statuses as of 02/05/2023) Resolved Problems Problem Noted Date Resolved Date Type 2 diabetes mellitus with stage 2 chronic ki dney disease 07/23/2022 01/22/2023 Type 2 diabetes mellitus with stage 2 chronic ki dney disease 01/22/2022 02/01/2022 Endometrial cancer 01/26/2021 07/23/2022 Cancer Staging:Clinical stage from 02/17/2021:FIGO Stage IA(cT1a, cN0(sn), cM0) - Signed by Vasu Gaona MD on 02/23/2021 Morbid obesity with body mas s index (BMI) of 45.0 to 49.9 in adult 11/12/2018 06/21/2020 Hypertensive kidney disease with chronic kidney disease stage III 11/10/2018 12/16/2019 Diabetes mellitus with stage 3 chronic kidney di sease 03/31/2018 06/06/2022 Overview: Per CKD protocol #1 BMI 40.0-44.9, adult 02/06/2017 12/04/2018 Body mass index (BMI) of 45.0 to 49.9 in adult 1 02/06/2017 Overview: Per Obesity protocol #1 HTN, goal below 140/90 06/29/2014 HTN, goal below 140/80 12/10/2011 5 Overview: Per HTN Protocol #27. DIVINA (obstructive sleep apnea) 04/09/2011 Overview: Very severe, AHI 121.2 T and B Hypoxemia 04/09/2011 12/16/2019 Overview: Nocturnal Shortness of breath 02/07/2011 02/07/2011 Edema 01/13/2010 03/17/2018 Vertigo 01/13/2010 03/17/2018 HTN, goal below 130/80 01/13/2010 2 Overview: Per HTN Protocol #27. documented as of this encounter (statuses as of 02/05/2023) Immunizations Name Administration Dates Next Due COVID-19 mRNA, LNP-s, No Pre serve, 2-Dose Series (Visitar) 03/09/2021 Pneumococcal Conjugate Vacci ne, 20-valent ([id number]) 07/23/2022 Pneumococcal Polysaccharide PPV23 (Pneumovax) 06/21/2020,11/19/2013 SEASONAL [...] 0.6 oz pur e alcohol) occasional ETOH Food Insecurity Answer Date Recorded Within the past 12 months, y ou worried that your food would run out before you got money to buy more. Never true 09/27/2022 Within the past 12 months, t he food you bought just didn't last and you didn't have money to get more. Never true 09/27/2022 Sex Assigned at Date Recorded Not on file Job Start Date Occupation Industry Not on file Not on file Not on file documented as of this encounter Progress Notes * Mayra Torres, [facility] - 02/05/2023 1:41 PM EDT Medication Therapy Disease Management Clinic - Diabetes Management Progress Note Shivani Gee, identified by name and date of , is a 72 year old female being seen for diabetes management/education. Patient presents for initial diabetic visit. Past Medical History: Diagnosis Date Dyslipidemia, goal LDL below 70 01/29/2011 Endometrial ca (HCC) HTN, goal below 140/90 2004 Type 2 diabetes mellitus with hemoglobin A1c goal of less than 7.0% ([facility]) 12/01/2010 ICD-10 update of inactive term Vertigo Diagnosis: Type 2 Age of diabetes diagnosis: at least 10 years ago Family history of diabetes: grandmother Microvascular complications: nephropathy Macrovascular complications: hypertension dyslipidemia DIABETES: Current diabetic medications: Metformin 500 mg one tablet twice daily Ozempic 0.25 mg once weekly Lifestyle: Diet: Comprehensive Diet Review Patient reports that she has been working to eat veggies and salads for most meals; working to incorporate more protein into meals; encouraged to start walking + body weight exercises Glucose Review/SMBG: not currently testing Hypoglycemia: Does your blood sugar go below 70 mg/dL? No Hyperglycemia symptoms present: none Recent Labs Units 01/15/23 0742 05/21/22 0840 01/22/22 1211 HEMOGLOBIN A1C - [facility] % 6.7* 6.3* 6.3* Recent Labs Units 01/15/23 0742 05/21/22 [...] Date Due COVID-19 Vaccine ( season) 2022 ASSESSMENT & PLAN: ICD-10-CM 1. Type 2 diabetes mellitus with hemoglobin A1c goal of less than 7.0% ([facility]) E11.9 2. Type 2 diabetes mellitus with stage 3a chronic kidney disease, without long- term current use of insulin ([facility]) E11.22 N18.31 Considerations: - will be applying for PACE/PACENET - renal function BG Readings - Blood sugars not available. Patient does not currently test. States the one that she has at home is old and no longer works. We discussed having a new one sent to pharmacy, but also reviewed that at this time MTM does not feel it necessary to monitor her sugars on a frequent basis on account of metformin and ozempic unlikely to cause lows blood sugars. Patient agreeable to get A1c checked before next mtm visit. Medications - Reviewed current regimen, patient is adherent to regimen. Did one dose of ozempic so far and does notice that her portion sizes have decreased. Discussed with patient goal to get to 0.5mg after 3 more doses. Discussed cost concerns with ozempic therapy for patients with part D insurance- more than likely that she will hit the donut hole at some point during the year. She plans to apply for PACE, and I requested that she send a SIPphone message to inform [facility] of the status of it. If sheis eligible, plan will be to get Ozempic through [employer] (she already gets all her maintenance meds through [employer]). If she is not eligible for PACE, then plan will be to pursue NovoNordisk PAP. Patient verbalized understanding of this. Of note, metformin dose could be optimized with patient's current renal function. Diet, Exercise, Lifestyle - encouraged patient to incorporate more protein into her diet as able. Encouraged patient to try to walk at least 4 times a week and progressively increase distance of walking. Encouraged patient to continue exercises at home with resistance bands and break up long periods of sitting . Patient is agreeable to SMBG 0 time(s) daily. Patient aware to contact clinic if any hypoglycemia before next visit. MEDICATION CHANGES: no change Diabetic Medications: Metformin 500 mg one tablet twice daily Ozempic 0.25 mg once weekly x 3 more doses, then increase to 0.5 mg once weekly thereafter - Sundays eGFR 60 mL/min as of 01/15/23 HEALTH MAINTENANCE INTERVENTIONS: Labs: A1c to be completed before next visit Immunizations: Up to Date Foot Exam: Up to Date Eye Exam: Up to Date Annual Wellness Visit: Up to Date FOLLOW UP: Return to clinic in 12 weeks 04/26/2023 Mayra Torres RPh Clinical Pharmacist - Sociology Faculty Member Medication Therapy Management Clinic 02/05/2023, 1:41 PM documented in this encounter Plan of Treatment Upcoming Encounters Date Type Specialty Care Team Description 02/18/2023 Imaging Radiology 04/24/2023 Laboratory [facility] [address] [place] [address] 04/26/2023 [facility] [address] [facility] [address] 07/24/2023 Office Visit Family Medicine Yenifer Krause PA-C [address] [place] [address] 08/09/2023 Office Visit Sleep Disorders Fya Ferreira, DO [address] [place] [address] 10/03/2023 Nurse Only Nurse [facility] [address] [facility] [place] [address] Scheduled Procedures Name Priority Associated Diagnoses Date/Ti me COLONOSCOPY FLEXIBLE PROXIMAL DIAGNOSTIC Recall Colon cancer screening Scheduled Referrals Name Type Priority Associated Diagnoses Orde r Schedule PHARMACIST MEDS THERAPY MGMT REFERRAL OP Referral Within 30 days (routine) Type 2 diabetes mellitus with hemoglobin A1c goal of less than 7.0% (HCC) Morbid (severe) obesity due to excess calories (HCC) Ordered: 01/30/2023 Health Maintenance Due Date Last Done Comments Cologuard 1997 Fecal Occult Blood Test 1997 Sigmoidoscopy 1997 COVID-19 Vaccine ( season) 2022 03/09/2021, 07/27/2020, 07/06/2020 Mammogram 02/16/2023 02/16/2022, 09/2020, 12/17/2019, Additional history exists Albumin/Creatinine Ratio [...] Additional history exists CKD HGB USE SMARTSET 72951 01/16/202401/15, 07/21/2021, 02/06/2021, Additional history exists CKD PHOS USE SMARTSET 45664 01/16/2024 09/2 09/2022, 07/21/2021, 12/22/2020, Additional history [...] without long-term current use of insulin (HCC) documented in this encounter Advance Directives Latest Code Status on File Code Status Date Activated Date Inactivated Comments Full Code 02/17/2021 11:44 AM 02/17/2021 4:59 PM Th is order reflects the patients wishes and were consensually agreed upon. Question Answer Comments Discussion of Advance Directives occurred with: Not Discussed Care Teams Quantometer Operator Relationship Specialty Start Date End Date Bridgette Forde, DO [address] [place] [address] PCP - General 01/12/10 documented as of this encounter
--- OUTSIDE RECORDS SUMMARY | 2023-07-28 14:34 | External Medical Summary | Summary of Care ---
Author Name Unknown Organization [facility] Address [address] [place] [address] Phone [phone] Care Team Providers Care Livestock Caretaker Name Role Phone JorgitoBridgette millan Sary THAPA Primary Care Provider + [phone] Reason for Visit * Reason Onset Date Comments Appointment 02/04/2023 Encounter Details Date Type Department Care Team Description 02/04/2023 Telephone Located Within [facility] [address] [place] [address] [facility] [address] [place] [address] Appointment Allergies Active Allergy Reactions Severity Noted Date Comments Lisinopril 02/15/2012 COUGH documented as of this encounter (statuses as of 02/04/2023) Medications Medication Sig Dispensed Refills Start Date End Date Status GLUCOMETER ELITE CLASSIC KITIndications:DM type 2, goal A1c below 7 use to check blood sugars twice daily 1 Kit 0 11/17/2010 Active ONETOUCH ULTRA SYSTEM W/DEVICE KITIndications:DM type 2, goal A1c below 7 Use up to four times a day as directed 1 Kit 0 11/19/2013 Active ONETOUCH ULTRA BLUE STRPIndications:DM type 2, goal A1c below 7 Use up to four times a day as directed 100 Strip 11 11/19/2013 Active ONETOUCH ULTRASOFT LANCETS MISCIndications:DM type 2, goal A1c below 7 Use up to four times a day as directed 1 Box 11 11/19/2013 Active Meclizine HCl 25 MG Oral Tablet (Antivert)Indicati [...] MOUTH EVERY MORNING 90 Tablet 1 08/27/2022 08/27/2023 Active cloNIDine HCl 0.1 MG Oral Tablet (Catapres)Indicati ons:HTN, goal below 130/80 TAKE ONE TABLET BY MOUTH TWICE A DAY 180 Tablet 1 08/15/2022 08/15/2023 Active metFORMIN HCl 500 MG Oral Tablet (Glucophage)Indica tions:Type 2 diabetes mellitus with hemoglobin A1c goal of less than 7.0% (HCC) TAKE ONE TABLET BY MOUTH TWICE A DAY 180 Tablet 1 07/16/2022 07/16/2023 Active Furosemide 40 MG Oral Tablet (Lasix)Indications :HTN, goal below 130/80 TAKE ONE TABLET BY MOUTH EVERY DAY IN THE MORNING 90 Tablet 2 05/29/2022 05/29/2023 Active amLODIPine Besylate 5 MG Oral Tablet (Norvasc)Indicatio ns:HTN, goal below 130/80 TAKE ONE TABLET BY MOUTH EVERY DAY IN THE MORNING 90 Tablet 2 05/29/2022 05/29/2023 Active Atorvastatin Calcium 20 MG Oral Tablet (Lipitor)Indicatio ns:Dyslipidemia, goal LDL below 70 TAKE ONE TABLET BY MOUTH EVERY MORNING 100 Tablet 2 10/30/2022 10/30/2023 Active Ozempic (0.25 or 0.5 MG/DOSE) 2 MG/1.5ML Solution Pen-injector (Semaglutide(0.25 or 0.5MG/DOS))Indicat ions:Type 2 diabetes mellitus with hemoglobin A1c goal of less than 7.0% (HCC),Morbid (severe) obesity due to excess calories (HCC) Inject 0.25 mg under the skin once a week. 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 DIVINA (obstructive sleep apnea) 04/09/2011 Overview: Very severe, AHI 121.2 T and B Hypoxemia 04/09/2011 12/16/2019 Overview: Nocturnal Shortness of breath 02/07/2011 02/07/2011 Edema 01/13/2010 03/17/2018 Vertigo 01/13/2010 03/17/2018 HTN, goal below 130/80 01/13/2010 2 Overview: Per HTN Protocol #27. documented as of this encounter (statuses as of 02/04/2023) Immunizations Name Administration Dates Next Due COVID-19 mRNA, LNP-s, No Pre serve, 2-Dose Series (Pfizer) 03/09/2021 Pneumococcal Conjugate Vacci ne, 20-valent ([id number]) 07/23/2022 Pneumococcal Polysaccharide PPV23 (Pneumovax) 06/21/2020,11/19/2013 SEASONAL [...] Telephone Encounter - Mayra Torres RPh - 02/04/2023 2:30 PM EDT Patient Phone Numbers Called and spoke with pt and scheduled MTM appointment for tomorrow afternoon. Mayra Torres, PharmD Clinical Pharmacist Medication Therapy Disease Management 02/04/2023, 2:32 PM * Telephone Encounter - Gianna Sousa LPN - 02/04/2023 12:13 PM EDT Patient calling, needs to be scheduled with Mayra. Jerzy Street put in a referral last week documented in this encounter Plan of Treatment Upcoming Encounters Date Type Specialty Care Team Description 02/05/2023 Office Visit Pharmacy [facility] [address] [facility] [place] [address] 02/18/2023 Imaging Radiology 04/24/2023 Laboratory [facility] [address] [place] [facility] [place] [address] 07/24/2023 Office Visit Family Medicine Yenifer Krause PA-C [address] [facility] [place] [address] 08/09/2023 Office Visit Sleep Disorders Fay Ferreira, DO [address] [place] [address] 10/03/2023 Nurse Only Ancillary Nurse [facility] [address] [facility] [place] [address] Scheduled Procedures Name Priority Associated Diagnoses Date/Ti [...] Additional history exists CKD HGB USE SMARTSET 93286 01/16/202401/15, 07/21/2021, 02/06/2021, Additional history exists CKD PHOS USE SMARTSET 85579 01/16/2024 09/2 09/2022, 07/21/2021, 12/22/2020, Additional history [...] goal of less than 7.0% (HCC)- Primary documented in this encounter Advance Directives Latest Code Status on File Code Status Date Activated Date Inactivated Comments Full Code 02/17/2021 11:44 AM 02/17/2021 4:59 PM Th is order reflects the patients wishes and were consensually agreed upon. Question Answer Comments Discussion of Advance Directives occurred with: Not Discussed Care Teams Livestock Caretaker Relationship Specialty Start Date End Date Bridgette Forde, [address] [place] [facility] [place] [address] PCP - General 01/12/10 documented as of this encounter
--- OUTSIDE RECORDS SUMMARY | 2023-07-28 14:34 | External Medical Summary | Summary of Care ---
Author Name Unknown Organization [facility] Address [address] [place] [address] Phone [phone] Care Team Providers Care Receptionist Doctor'S Office Name Role Phone Geraldo Nielson DO Primary Care Provider + [phone] Reason for Visit * Reason Comments Medication Refill Encounter Details Date Type Department Care Team Description 02/08/2023 Refill [facility] [address] [place] [address] Geraldo Nielson DO [address] [place] [address] Type 2 diabetes mellitus with hemoglobin A1c goal of less than 7.0% ([facility]); HTN, goal below 130/80 Allergies Active Allergy Reactions Severity Noted Date Comments Lisinopril 02/15/2012 COUGH documented as of this encounter (statuses as of 02/08/2023) Medications Medication Sig Dispensed Refills Start Date [...] DAY 180 Tablet 1 08/15/2022 08/15/2023 Active Furosemide 40 MG Oral Tablet (Lasix)Indicatio [...] a week. 1.5 mL 0 01/22/2023 Active metFORMIN HCl 500 MG Oral Tablet (Glucophage)Ledy cations:Type 2 diabetes mellitus with hemoglobin A1c goal of less than 7.0% (HCC) TAKE ONE TABLET BY MOUTH TWICE A DAY 180 Tablet 1 02/08/2023 02/08/2024 Active Losartan Potassium 100 MG Oral Tablet (Cozaar)Indicati ons:HTN, goal below 130/80 TAKE ONE TABLET BY MOUTH EVERY MORNING 90 Tablet 1 02/08/2023 02/08/2024 Active Losartan Potassium 100 MG Oral Tablet (Cozaar)Indicati ons:HTN, goal below 130/80 TAKE ONE TABLET BY MOUTH EVERY MORNING 90 Tablet 1 08/27/2022 02/08/2023 Discontinued (Refill) metFORMIN HCl 500 MG Oral Tablet (Glucophage)Ledy cations:Type 2 diabetes mellitus with hemoglobin A1c goal of less than 7.0% (HCC) TAKE ONE TABLET BY MOUTH TWICE A DAY 180 Tablet 1 07/16/2022 02/08/2023 Discontinued (Refill) documented as of this encounter (statuses as of 02/08/2023) Active Problems Problem Noted Date HTN, goal [...] as of this encounter (statuses as of 02/08/2023) Resolved Problems Problem Noted Date Resolved Date [...] as of this encounter (statuses as of 02/08/2023) Immunizations Name Administration Dates Next Due COVID-19 mRNA, LNP-s, No Pre serve, 2-Dose Series (Pfizer) 03/09/2021 Pneumococcal Conjugate Vacci ne, 20-valent ([id number]) 07/23/2022 Pneumococcal Polysaccharide PPV23 (Pneumovax) 06/21/2020,11/19/2013 SEASONAL [...] encounter Miscellaneous Notes * Telephone Encounter - Cameron Bautista [facility] - 02/08/2023 11:24 AM EDT Signed Prescriptions: Disp Refills metFORMIN HCl 500 MG Oral Tablet (Glucopha*180 Ta*1 Sig: TAKE ONE TABLET BY MOUTH TWICE A DAY Authorizing Provider: GERALDO NIELSON Ordering User: CAMERON BAUTISTA Losartan Potassium 100 MG Oral Tablet (Coz*90 Tab*1 Sig: TAKE ONE TABLET BY MOUTH EVERY MORNING Authorizing Provider: GERALDO NIELSON Ordering User: CAMERON BAUTISTA * Telephone Encounter - 02/08/2023 12:14 AM EDTPending Prescriptions: Disp Refills metFORMIN HCl 500 MG Oral Tablet (Glucopha*180 Ta*1 Sig: TAKE ONE TABLET BY MOUTH TWICE A DAY Losartan Potassium 100 MG Oral Tablet (Coz*90 Tab*1 Sig: TAKE ONE TABLET BY MOUTH EVERY MORNING documented in this encounter Plan of Treatment Upcoming Encounters Date Type Specialty Care Team Description 02/18/2023 Imaging Radiology 04/24/2023 Laboratory [facility] [address] [facility] [place] [address] 04/26/2023 Office Visit Pharmacy [facility] [address] [place] [facility] [place] [address] 07/24/2023 Office Visit Family Medicine Yenifer Krause PA-C [address] [facility] [address] 08/09/2023 Office Visit Sleep Disorders Fay Ferreira, DO [address] [place] [address] 10/03/2023 Nurse Only Ancillary [facility] [address] [facility] [place] [address] Scheduled Procedures Name Priority Associated Diagnoses Date/Ti [...] Additional history exists CKD HGB USE SMARTSET 47614 01/16/202401/15, 07/21/2021, 02/06/2021, Additional history exists CKD PHOS USE SMARTSET 31649 01/16/2024 09/2 09/2022, 07/21/2021, 12/22/2020, Additional history [...] A1c goal of less than 7.0% (HCC) HTN, goal below 130/80 Unspecified essential hypertension documented in this encounter Advance Directives Latest Code Status on File Code Status Date Activated Date Inactivated Comments Full Code 02/17/2021 11:44 AM 02/17/2021 4:59 PM Th is order reflects the patients wishes and were consensually agreed upon. Question Answer Comments Discussion of Advance Directives occurred with: Not Discussed Care Teams Receptionist Doctor'S Office Relationship Specialty Start Date End Date Geraldo Nielson DO [address] [place] [address] PCP - General 01/12/10 documented as of this encounter
--- OUTSIDE RECORDS SUMMARY | 2023-07-28 14:34 | External Medical Summary ---
Author Name Unknown Address Unknown Organization K01:[facility] [place] [facility] [address] [facility] [address] Laboratory Report Ordering Provider Test Date Status JOVANNIELFEGOYESI 04/24/2023 08:58:25 Final Observation Date Value Abnormality Reference (Units ) Status HbA1C 04/24/2023 08:58:25 6.5 Above high normal 4. 0-5.6 (%) Final The use of HbA1c to monitor glycemic status is based on normal hemoglobin and HbA composition. This test should not be used in patients with abnormal hemoglobin that affects the half life of the red blood cell or the in vivo glycation rates. Glucose, estimated average 04/24/2023 08:58:25 140 Above high normal <126 (mg/dL) Frantz shannon Performing Location [facility] [address] [facility] [address] [facility] [address]
--- OUTSIDE RECORDS SUMMARY | 2023-07-28 14:34 | External Medical Summary | Summary of Care ---
Author Name Unknown Organization [facility] Address [address] [place] [address] Phone [phone] Care Team Providers Care Bagger Meat Name Role Phone JorgitoBridgette millan Sary THAPA Primary Care Provider [phone] Reason for Visit * Reason Comments Medication Refill Encounter Details Date Type Department Care Team (Late st Contact Info) Description 03/18/[address] [facility] [address] [place] [address] Yenifer Krause PA-C [address] [place] [address] HTN, goal below 130/80 Allergies Active Allergy Reactions Criticality Noted Date Comments Lisinopril 02/15/2012 COUGH documented as of this encounter (statuses as of 03/18/2023) Medications Medication Sig Dispensed Refills Start Date [...] MOUTH DAILY 90 Tablet 3 01/31/2022 Active Atorvastatin Calcium 20 MG Oral Tablet [...] THE MORNING 90 Tablet 3 03/18/2023 Active amLODIPine Besylate 5 MG Oral Tablet (Norvasc)Indicat ions:HTN, goal below 130/80 TAKE ONE TABLET BY MOUTH EVERY DAY IN THE MORNING 90 Tablet 2 05/29/2022 03/18/2023 Discontinued (Refill) documented as of this encounter (statuses as of 03/18/2023) Active Problems Problem Noted Date Diagnosed Date [...] as of this encounter (statuses as of 03/18/2023) Resolved Problems Problem Noted Date Diagnosed Date [...] as of this encounter (statuses as of 03/18/2023) Immunizations Name Administration Dates Next Due COVID-19 mRNA, LNP-s, No Pre serve, 2-Dose Series (Pfizer) 03/09/2021 Pneumococcal Conjugate Vacci ne, 20-valent ([id number]) 07/23/2022 Pneumococcal Polysaccharide PPV23 (Pneumovax) 06/21/2020,11/19/2013 SEASONAL [...] encounter Miscellaneous Notes * Telephone Encounter - Jamshid Sierra RP - 03/18/2023 7:11 AM ESTSigned Prescriptions: Disp Refills amLODIPine Besylate 5 MG Oral Tablet (Norv*90 Tab*3 Sig: TAKE ONE TABLET BY MOUTH EVERY DAY IN THE MORNINGAuthorizing Provider: YENIFER KRAUSE User: JAMSHID SIERRA documented in this encounter Plan of Treatment Upcoming Encounters Date Type Department Care Team (Late st Contact Info) Description 04/24/2023 9:00 AM EST [facility], [place] [address] [facility] [id number] [facility] [address] [facility] [address] 04/26/2023 8:30 AM EST Office Visit [facility], [place] [address] [facility] [address] [facility] [address] [facility] [address] 07/24/2023 8:20 AM EDT Office Visit Family [facility], [place] [address] [facility] [phone] [facility]enifer [facility]use [facility]C [address] [facility] [place] [address] 08/09/2023 10:00 AM EDT Office Visit [facility] Disorders Ctr [facility] [address] [facility] [place] [id number] Fay Ferreira, [address] [facility] [place] [address] 10/03/2023 9:30 AM EDT Nurse Only Ancillary Department, [place] [address] [facility] [place] [address] Nurse [facility] [address] [facility] [place] [address] 02/20/2024 7:00 AM EDT Imaging Radiology [address] [facility] [place] [address] Scheduled Procedures Name Priority Associated Diagnoses Date/Ti [...] Additional history exists CKD HGB USE SMARTSET 05673 01/16/202401/15, 07/21/2021, 02/06/2021, Additional history exists CKD PHOS USE SMARTSET 04181 01/16/202412/22, 07/21/2021, 12/22/2020, Additional history exists Mammogram [...] Directives occurred with: Not Discussed Care Teams Bagger Meat Relationship Specialty Start Date End Date Bridgette Forde DO [address] [place] [address] PCP - General 01/12/10 documented as of this encounter
[2023-07-28 15:45] LABS: Basophils # (auto) 0.04 K/uL (0.00-0.20); Basophils % (auto) 0.4 %; Eosinophils # (auto) 0.02 K/uL (0.00-0.50); Eosinophils % (auto) 0.2 %; Hemoglobin 13.8 g/dl (12.0-16.0); Immature Granulocytes # (auto) 0.03 K/uL (0.01-0.20); Immature Granulocytes % (auto) 0.3 %; Lymphocytes # (auto) 0.85 K/uL (1.20-3.40); Lymphocytes % (auto) 7.7 %; Mean Corpuscular Hemoglobin 31.2 pg (25.0-34.0); Mean Corpuscular Hgb Conc 32.9 g/dL (32.0-36.0); Mean Corpuscular Volume 94.8 fL (80.0-100.0); Mean Platelet Volume 10.1 fL (9.4-12.4); Monocytes # (auto) 0.46 K/uL (0.11-0.59); Monocytes % (auto) 4.2 %; Neutrophils # (auto) 9.59 K/uL (1.40-6.50); Neutrophils % (auto) 87.2 %; Platelet Count 284 K/uL (130-400); RDW Coefficient of Variation 13.4 % (11.5-14.5); RDW Standard Deviation 46.8 fL (36.4-46.3); Red Blood Count 4.43 M/uL (4.20-5.40); White Blood Count 10.99 K/ul (4.8-10.8)
--- NOTE | 2023-07-28 15:46 | Emergency Department Note ---
Impression & Plan Calculus of distal left ureter, Abdominal pain, LLQ (left lower quadrant), Left flank pain, Acute UTI (urinary tract infection) ED Provider Note HISTORY OF PRESENT ILLNESS: Patient is a 73-year-old female presenting with left lower quadrant abdominal pain. Patient reports the pain started as a vague discomfort yesterday, but she woke up this morning and has been having significant worsening of her pain as the day has progressed. Reports nausea and dry heaving but no active vomiting or diarrhea. Denies any dysuria or hematuria. She has an abdominal surgical history significant for a total hysterectomy. She denies any notable fevers at home. Denies any recent sick contact exposures. Describes the pain as a sharp and constant pain in her left lower quadrant with radiation into her left low back. ROS: as above PHYSICAL EXAM: Constitutional: Patient appears in no acute distress. Morbidly obese HENT: Head: Normocephalic and atraumatic. Eyes: EOMI, PERRL Mouth/Throat: Mucous membranes moist. Neck: Trachea midline. Neck supple. Cardiovascular: RRR, No murmurs, rubs or gallops. Intact distal pulses. Pulmonary/Chest: No respiratory distress. Breath sounds clear and equal bilaterally. No wheezes or rales. Abdominal: Abdomen soft, no rebound or guarding. LLQ TTP Musculoskeletal: No edema, tenderness or deformity noted. Skin: Warm and dry. No rash, erythema, pallor or cyanosis Psychiatric: Appropriate mood and affect for situation. Neurological: Alert and keenly responsive. CN II-XII grossly intact, moving all extremities equally and fully. MDM: - Vitals signs showed hypertension - History obtained via patient. History as above. - Chronic conditions affecting care: morbid obesity; HTN - Differential diagnoses include, but are not limited to: diverticulitis; UTI; ureteral stone; colitis; small bowel obstruction - Order placed for continuous cardiac monitoring. At this time, monitor showed rate of 95 bpm with normal sinus rhythm, per my interpretation. - External medical records reviewed. - Laboratory workup interpreted by myself showed slight leukocytosis (WBC 10.99) with left shift; stable electrolytes; CKD (Cr 1.32); normal lipase - UA shows bacteria and WBCs, concerning for infection. Given 2g IV rocephin - CT abdomen/pelvis with IV contrast showed obstructive 3 mm left UVJ stone associated with hydronephrosis and hydroureter. - Patient given 50 mcg Isabelle fentanyl, 1L NS and 4 mg IV zofran for symptomatic management. On reassessment, patient complaining of pain and nausea again. Given 5 mg IV compazine, 25 mg IV benadryl and 30 mg IV toradol. - Given patient's stone in setting of UTI, discussed case with urologist professional application designer, Dr. Mcarthur, at 17:28. He recommended admission to medicine and n.p.o. at midnight. He reports that patient should have her urine streamed throughout the night to see if she passes the stone. If she does not, he will add her to the list for stenting tomorrow. - Discussion was had with case worker about patient's case and need for admission - Hospitalist consulted for admission - [facility] ASSESSMENT AND PLAN: Diagnosis: LLQ abdominal pain; acute UTI; left ureteral stone; left flank pain Plan: admit Past Med/Surg History Social History Smoking Status: Former smoker Feels Safe at Home: Yes Allergies Allergies Allergy/AdvReac Type Severity Reaction Status Date / Time lisinopril AdvReac Intermediate Cough Verified 07/28/23 17:55 Home Meds Home Medications Medication Instructions Recorded Confirmed amlodipine 5 mg tablet 5 mg PO DAILY 07/04/20 07/28/23 atorvastatin 20 mg tablet 20 mg PO HS 07/04/20 07/28/23 clonidine HCl 0.1 mg tablet 0.1 mg PO BID 07/04/20 07/28/23 furosemide 40 mg tablet 40 mg PO DAILY 07/04/20 07/28/23 losartan 50 mg tablet 50 mg PO DAILY 07/04/20 07/28/23 meclizine 25 mg tablet 25 mg PO TID PRN Dizziness 07/04/20 07/28/23 potassium chloride 20 mEq 20 meq PO DAILY 07/04/20 07/28/23 tablet,extended release(part/cryst) (Klor-Con M) metformin 500 mg tablet,extended 500 mg PO HS 07/28/23 07/28/23 release 24 hr semaglutide 2 mg/dose (8 mg/3 mL) 2 mg subcut WK 07/28/23 07/28/23 subcutaneous pen injector (Ozempic) Results & Data (ED) Vital Signs Vital Signs - 24 hr 07/28/23 14:37 07/28/23 15:59 07/28/23 16:00 Temperature 36.3 C L Temperature Source Temporal Artery Scan Pulse Rate 64 67 Pulse Rate from SpO2 Sensor 67 Respiratory Rate 16 9 L Respiratory Effort / Characteristics Non-Labored Spontaneous Respiratory Depth Normal Respiratory Pattern Regular Blood Pressure 165/66 H 158/83 H Blood Pressure Mean 99 104 Pulse Oximetry 98 93 Oxygen Delivery Method Room Air Sepsis Recent Fever Within 48 Hours No Sepsis New/Unexplained Change in Mental Status N/A Sepsis Action Taken by Nursing No Action Required 07/28/23 16:00 07/28/23 16:07 07/28/23 16:30 Temperature Temperature Source Pulse Rate 66 67 77 Pulse Rate from SpO2 Sensor 66 74 Respiratory Rate 13 11 L Respiratory Effort / Characteristics Respiratory Depth Respiratory Pattern Blood Pressure Blood Pressure Mean Pulse Oximetry 91 97 Oxygen Delivery Method Room Air Sepsis Recent Fever Within 48 Hours Sepsis New/Unexplained Change in Mental Status Sepsis Action Taken by Nursing 07/28/23 16:30 07/28/23 17:00 07/28/23 17:13 Temperature Temperature Source Pulse Rate 91 H 96 H Pulse Rate from SpO2 Sensor 91 H 96 H Respiratory Rate 12 13 Respiratory Effort / Characteristics Respiratory Depth Respiratory Pattern Blood Pressure 171/80 H Blood Pressure Mean 121 Pulse Oximetry 96 95 Oxygen Delivery Method Room Air Sepsis Recent Fever Within 48 Hours Sepsis New/Unexplained Change in Mental Status Sepsis Action Taken by Nursing 07/28/23 17:13 07/28/23 17:30 07/28/23 17:30 Temperature Temperature Source Pulse Rate 95 H Pulse Rate from SpO2 Sensor 99 H Respiratory Rate 12 Respiratory Effort / Characteristics Respiratory Depth Respiratory Pattern Blood Pressure 192/87 H 184/86 H Blood Pressure Mean 108 108 Pulse Oximetry 94 Oxygen Delivery Method Sepsis Recent Fever Within 48 Hours Sepsis New/Unexplained Change in Mental Status Sepsis Action Taken by Nursing 07/28/23 18:00 07/28/23 18:00 Temperature Temperature Source Pulse Rate 96 H Pulse Rate from SpO2 Sensor 97 H Respiratory Rate 21 Respiratory Effort / Characteristics Respiratory Depth Respiratory Pattern Blood Pressure 190/89 H Blood Pressure Mean 135 Pulse Oximetry 93 Oxygen Delivery Method Room Air Sepsis Recent Fever Within 48 Hours Sepsis New/Unexplained Change in Mental Status Sepsis Action Taken by Nursing Laboratory Data 07/28/23 15:16 07/28/23 15:16 Lab Results 07/28/23 07/28/23 Range/Units 15:16 15:58 WBC 10.99 H (4.8-10.8) K/ul RBC 4.43 (4.20-5.40) M/uL Hgb 13.8 (12.0-16.0) g/dl Hct 42.0 (37.0-47.0) % MCV 94.8 (80.0-100.0) fL MCH 31.2 (25.0-34.0) pg MCHC 32.9 (32.0-36.0) g/dL RDW Std Deviation 46.8 H (36.4-46.3) fL RDW Coeff of [place] 13.4 (11.5-14.5) % Plt Count 284 (130-400) K/uL MPV 10.1 (9.4-12.4) fL Immature Gran % (Auto) 0.3 % Neut % (Auto) 87.2 % Lymph % (Auto) 7.7 % [place] % (Auto) 4.2 % Eos % (Auto) 0.2 % Baso % (Auto) 0.4 % Neut # (Auto) 9.59 H (1.40-6.50) K/uL Lymph # (Auto) 0.85 L (1.20-3.40) K/uL [place] # (Auto) 0.46 (0.11-0.59) K/uL Eos # (Auto) 0.02 (0.00-0.50) K/uL Baso # (Auto) 0.04 (0.00-0.20) K/uL Immature Gran # (Auto) 0.03 (0.01-0.20) K/uL Sodium 141 (136-145) mmol/L Potassium 4.1 (3.5-5.1) mmol/L Chloride 103 (98-107) mmol/L Carbon Dioxide 27 (21-32) mmol/L Anion Gap 11 (3-11) BUN 20 (6-23) mg/dl Creatinine 1.32 H (0.6-1.2) mg/dl Est Cr Clr Drug Dosing 54.3 ml/min Est GFR ( Amer) 46.9 ml/min Est GFR (Non-Af Amer) 40.5 ml/min BUN/Creatinine Ratio 15.2 (10-20) Glucose 121 H (70-99(Fasting)) mg/dl Calcium 9.9 (8.6-10.3) mg/dl Total Bilirubin 0.5 (0.2-1.0) mg/dl AST 18 (13-39) U/L ALT 10 (7-52) U/L Alkaline Phosphatase 71 (34-104) U/L Total Protein 7.7 (6.0-8.3) gm/dl Albumin 4.2 (3.4-5.0) gm/dl Globulin 3.5 (2.5-4.0) gm/dl Albumin/Globulin Ratio 1.2 (0.9-2) Lipase 76 (11-82) U/L Urine Color Yellow Urine Appearance Clear (Clear) Urine pH 5.0 (4.5-7.5) Ur Specific [place] 1.014 (1.000-1.030) Urine Protein Negative (Negative) Urine Glucose (UA) Negative (Negative) Urine Ketones Negative (Negative) Urine Blood 2+ H (Negative) Urine Nitrite Negative (Negative) Urine Bilirubin Negative (Negative) Urine Urobilinogen Negative (Negative) Ur Leukocyte Esterase Negative (Negative) Urine WBC (Auto) >30 H (0-5) /hpf Urine RBC (Auto) 0-4 (0-4) /hpf U Hyaline Cast (Auto) 10-30 H (0-5) /lpf U Epithel Cells (Auto) >30 H (0-5) /lpf Urine Bacteria (Auto) 4+ H (Negative) Urine Yeast Not Reportable Administered Medications Tamsulosin HCl (Tamsulosin Hcl 0.4 Mg Cap) 0.4 mg PO NOW ONE Stop: 07/28/23 18:46 Last Admin: 07/28/23 18:48 Dose: 0.4 mg Documented By: ROSEMARY Discontinued Medications Diphenhydramine HCl (Diphenhydramine 50 Mg/Ml Vial) 25 mg IV NOW STA Stop: 07/28/23 16:43 Last Admin: 07/28/23 16:47 Dose: 25 mg Documented By: ROSEMARY Fentanyl Citrate (Fentanyl Citrate Pf 100 Mcg/2 Ml Vial) 50 mcg IV NOW STA Stop: 07/28/23 15:44 Last Admin: 07/28/23 15:51 Dose: 50 mcg Documented By: ROSEMARY Sodium Chloride (Nss) 1,000 mls @ 999 mls/hr IV .Q1H1M ONE Stop: 07/28/23 16:43 Last Infusion: 07/28/23 18:07 Dose: Infused Documented By: Admin: 07/28/23 15:51 Dose: 999 mls/hr Documented By: ROSEMARY Prochlorperazine (Compazine) 1 mls @ 1 mls/min IV ONE ONE Stop: 07/28/23 16:43 Last Admin: 07/28/23 16:46 Dose: 1 mls/min Documented By: ROSEMARY Ceftriaxone Sodium (Rocephin) 2,000 mg in 50 mls @ 100 mls/hr IV NOW STA Stop: 07/28/23 17:11 Last Infusion: 07/28/23 17:24 Dose: Infused Documented By: Admin: 07/28/23 16:46 Dose: 100 mls/hr Documented By: ROSEMARY Ioversol (Optiray 320 100ml) 91 ml IV ONCE ONE Stop: 07/28/23 16:21 Last Admin: 07/28/23 16:20 Dose: 91 ml Documented By: SHERRY Ketorolac Tromethamine (Ketorolac 30 Mg/Ml Vial) 30 mg IV NOW ONE Stop: 07/28/23 17:56 Last Admin: 07/28/23 18:01 Dose: 30 mg Documented By: ROSEMARY Ondansetron HCl (Ondansetron Inj 2 Mg/Ml 2 Ml Vial) 4 mg IV NOW STA Stop: 07/28/23 15:44 Last Admin: 07/28/23 15:52 Dose: 4 mg Documented By: ROSEMARY Imaging Data Radiologist's Impression: Abdomen/Pelvis CT 07/28/23 15:06 CT abd pelvis IV con only CLINICAL HISTORY: LLQ abdominal pain TECHNIQUE: Helical axial images of the abdomen and pelvis were obtained and displayed. Automated dose lowering techniques and/or adjustment according to patient size were utilized for this exam. This exam was performed with intravenous contrast. CT DOSE: 1590.24 mGy.cm COMPARISON: Comparison is made to CT abdomen pelvis 05/07/2013 FINDINGS: Lower chest: No acute abnormality. Liver: Unremarkable. No focal lesions are seen. Gallbladder and biliary tree: No calcified gallstones. Normal caliber wall. No intra- or extrahepatic biliary ductal dilation. Pancreas: Unremarkable, no focal lesions. Spleen: Unremarkable. Adrenals: Unremarkable. Kidneys and ureters: There is a 3 mm left UVJ stone with associated hydroureter and hydronephrosis. Bladder: Unremarkable. Reproductive organs: Unremarkable. Bowel: Diverticulosis is seen without evidence of diverticulitis. Lymph nodes Retroperitoneal: Unremarkable. Pelvic: Unremarkable. Mesenteric: Unremarkable. Peritoneum: Normal. Vessels: Atherosclerotic calcifications are seen. Abdominal wall: A fat-containing umbilical hernia is seen. Bones: Degenerative changes in the visualized spine. IMPRESSION: 1. Obstructive left UVJ stone is seen with hydronephrosis and hydroureter. 2. Diverticulosis without diverticulitis. ACT 112: Negative or not required by law. Electronically signed by: Bruce Jerome M.D. 07/28/2023 4:52 PM Discharge Plan Visit Data Chief Complaint: Abdominal Pain Stated Complaint: LEFT SIDE ABD PAIN ED Provider: Alva Lyle Discharge Problem: Calculus of distal left ureter, Abdominal pain, LLQ (left lower quadrant), Left flank pain, Acute UTI (urinary tract infection) Forms Stand Alone Forms: [employer] Prescriptions Prescriptions: No Action losartan 50 mg tablet 50 mg PO DAILY furosemide 40 mg tablet 40 mg PO DAILY clonidine HCl 0.1 mg tablet 0.1 mg PO BID atorvastatin 20 mg tablet 20 mg PO HS amlodipine 5 mg tablet 5 mg PO DAILY potassium chloride [Klor-Con M20] 20 mEq tablet,ER particles/crystals 20 meq PO DAILY meclizine 25 mg tablet 25 mg PO TID PRN (Reason: Dizziness) metformin 500 mg tablet extended release 24 hr 500 mg PO HS Ozempic 2 mg/dose (8 mg/3 mL) pen injector 2 mg SUBCUT WK Rx Instructions: Sundays Referrals Referrals: Bridgette Forde DO [Primary Care Provider] -
[2023-07-28] MEDS: SODIUM CHLORIDE 0.9% 1,000 ML IV ONE (15:51)
[2023-07-28] MEDS: fentaNYL citrate PF 100 MCG/2 ML VIAL IV STA ×2 (15:51→18:01)
[2023-07-28] MEDS: ONDANSETRON INJ 2 MG/ML 2 ML VIAL IV STA (15:52)
[2023-07-28 16:00] LABS: Albumin Globulin Ratio 1.2 (0.9-2); Albumin Level 4.2 gm/dl (3.4-5.0); BUN Creatinine Ratio 15.2 (10-20); Bilirubin,Total 0.5 mg/dl (0.2-1.0); Calcium 9.9 mg/dl (8.6-10.3); Creatinine Clr Calc Pharmacy 54.3 ml/min; Est GFR (African American) 46.9 ml/min; Est GFR (Non-African American) 40.5 ml/min; Globulin 3.5 gm/dl (2.5-4.0); Potassium 4.1 mmol/L (3.5-5.1); Total Protein 7.7 gm/dl (6.0-8.3)
[2023-07-28 16:13] LABS: Appearance Urine Clear (Clear); Bacteria Urine Automated 4+ (Negative); Bilirubin Urine Negative (Negative); Blood Urine 2+ (Negative); Color Urine Yellow; Epithelial Cell Urine Auto >30 /lpf (0-5); Glucose Urine UA Negative (Negative); Ketones Urine Negative (Negative); Leukocyte Esterase Urine Negative (Negative); Nitrite Urine Negative (Negative); Protein Urine Negative (Negative); RBC Urine Automated 0-4 /hpf (0-4); Specific Gravity Urine 1.014 (1.000-1.030); Urobilinogen Urine Negative (Negative); WBC Urine Automated >30 /hpf (0-5)
[2023-07-28] MEDS: OPTIRAY 320 100ml IV ONE (16:20)
[2023-07-28] MEDS: cefTRIAXone SODIUM 2,000 MG/50 ML BAG IV STA (16:46)
[2023-07-28] MEDS: PROCHLORPERAZINE 1 ML IV ONE (16:46)
[2023-07-28] MEDS: diphenhydrAMINE 50 MG/ML VIAL IV STA (16:47)
--- NOTE | 2023-07-28 16:54 | CT Scan Report ---
CT abd pelvis IV con only CLINICAL HISTORY: LLQ abdominal pain TECHNIQUE: Helical axial images of the abdomen and pelvis were obtained and displayed. Automated dose lowering techniques and/or adjustment according to patient size were utilized for this exam. This e xam was performed with intravenous contrast. CT DOSE: 1590.24 mGy.cm COMPARISON: Comparison is made to CT abdomen pelvis 05/07/2013 FINDINGS: Lower chest: No acute abnormality. Liver: Unremarkable. No focal lesions are seen. Gallbladder and biliary tree: No calcified gallstones. Normal caliber wall. No intra- or extrahepatic biliary ductal dilation. Pancreas: Unremarkable, no focal lesions. Spleen: Unremarkable. Adrenals: Unremarkable. Kidneys and ureters: There is a 3 mm left UVJ stone with associated hydroureter and hydronephrosis. Bladder: Unremarkable. Reproductive organs: Unremarkable. Bowel: Diverticulosis is seen without evidence of diverticulitis. Lymph nodes Retroperitoneal: Unremarkable. Pelvic: Unremarkable. Mesenteric: Unremarkable. Peritoneum: Normal. Vessels: Atherosclerotic calcifications are seen. Abdominal wall: A fat-containing umbilical hernia is seen. Bones: Degenerative changes in the visualized spine. IMPRESSION: 1. Obstructive left UVJ stone is seen with hydronephrosis and hydroureter. 2. Diverticulosis without diverticulitis. ACT 112: Negative or not required by law. Electronically signed by: Bruce Jerome M.D. 07/28/2023 4:52 PM
[2023-07-28] MEDS: KETOROLAC 30 MG/ML VIAL IV ONE (18:01)
[2023-07-28] MEDS: TAMSULOSIN HCL 0.4 MG CAP PO ONE (18:48)
--- NOTE | 2023-07-28 19:53 | History & Physical Report ---
Date of Service July 28, 2023 Assessment & Plan (1) Calculus of distal left ureter: (2) Acute UTI (urinary tract infection): (3) HTN (hypertension): (4) Diabetes mellitus: (5) Morbid obesity: (6) DIVINA on CPAP: (7) Hydronephrosis with ureteral calculus: Plan 73-year old female with history of hypertension, diabetes, morbid obesity, DIVINA who presented to ED with left lower abdomen pain and found to have left distal ureter obstructing stone with hydronephrosis/hydroureter Left VUJ stone with hydroureter and hydronephrosis- 1st episode. CT A/P with obstructive left UVJ stone is seen with hydronephrosis and hydroureter. ED physician discussed with urology - Will continue ivf, flomax, oxycodone prn/dilaudid prn for pain - Strain all urine. Send to lab if passes stone - Stone is small enough and distal now- will likely pass. If unable to pass, uro might take her to OR. Urology consulted. Will keep npo overnight UTI- UA suspicious for UTI. Started on rocephin in ED, will continue pending urine clx results, however she denies any dysuria or other urinary symptoms. DM-2- On ozempic which she took today. On metformin 500 mg hs which we will hold. WIll have diabetic diet and SSI prn. Recent A1c 5.9 HTN- BP elevated due to pain, now controlled. continue home clonidine, losartan, amlodipine. HLZ prn. Morbid obesity- BMI 46. Weight loss recommended DIVINA on CPAP- she did not bring the machine from home and states she would be okay without it for tonight DVT ppx- SCD, ambulation. Start chemoppx tomorrow if staying Dispo- Medsurg Time spent- [id number] mins Full code History of Present Illness Chief Complaint: left abd pain Primary Care Provider: Bridgette Forde DO 73-year-old female with history of hypertension, diabetes mellitus, DIVINA on CPAP, CKD, morbid obesity, history of endometrial carcinoma who presented to ED with left lower abdomen pain started yesterday and significantly worsened today. She also had some nausea and dry heaving but no vomiting. No fever or chills. No chest pain, shortness of breath, dysuria, diarrhea. In the ED, she was found to have abnormal UA with CT abdomen pelvis showing obstructing left UVJ stone with hydronephrosis and hydroureter. ED physician spoke with Dr. Mcarthur and they will evaluate the patient in morning. Hospitalist services consulted for further management. During the encounter, patient was feeling better with the pain medication. Discussed plan of care. PMH-hypertension, diabetes, DIVINA, CKD, obesity, endometrial cancer Surgical history-hysterectomy Social history-prior smoker. Denies current alcohol, tobacco or drug abuse Allergies-lisinopril Allergies Allergy/AdvReac Type Severity Reaction Status Date / Time lisinopril AdvReac Intermediate Cough Verified 07/28/23 17:55 Home Medications Medication Instructions Recorded Confirmed Type amlodipine 5 mg tablet 5 mg PO DAILY 07/04/20 07/28/23 History atorvastatin 20 mg tablet 20 mg PO HS 07/04/20 07/28/23 History clonidine HCl 0.1 mg tablet 0.1 mg PO BID 07/04/20 07/28/23 History furosemide 40 mg tablet 40 mg PO DAILY 07/04/20 07/28/23 History losartan 50 mg tablet 50 mg PO DAILY 07/04/20 07/28/23 History meclizine 25 mg tablet 25 mg PO TID PRN Dizziness 07/04/20 07/28/23 History potassium chloride 20 mEq 20 meq PO DAILY 07/04/20 07/28/23 History tablet,extended release(part/cryst) (Klor-Con M) metformin 500 mg tablet,extended 500 mg PO HS 07/28/23 07/28/23 History release 24 hr semaglutide 2 mg/dose (8 mg/3 mL) 2 mg subcut WK 07/28/23 07/28/23 History subcutaneous pen injector (Ozempic) Past Med/Surg History Social History Smoking Status: Former smoker Feels Safe at Home: Yes Review of Systems Review of Systems: All systems reviewed & are unremarkable except as noted in Subjective Physical Exam Physical Exam: General: Morbidly obese female, sitting comfortably in bed, not in distress, on room air HEENT: EOMI, SARAI, MMM Chest: Clear breath sounds bilaterally, no wheezes or crackles CVS: Regular rate and rhythm, normal heart sounds, no murmur Abdomen: Soft, mild left lower abdominal tenderness, not distended, normal bowel sounds Neuro: Awake, alert, oriented, conversing well, non focal Extremities: Trace edema Results & Data Results & Data Vital Signs (Past 12 Hours) Vital Signs Temp Pulse Resp BP Pulse Ox O2 Del Method 07/28/23 19:34 101 H 19 94 Room Air 07/28/23 19:34 135/94 07/28/23 19:30 98 H 16 07/28/23 19:09 108 H 25 H 07/28/23 19:09 157/77 H 07/28/23 19:00 101 H 20 07/28/23 18:48 110/66 07/28/23 18:48 106 H 20 07/28/23 18:31 106 H 25 H 07/28/23 18:00 190/89 H 07/28/23 18:00 96 H 21 93 Room Air 07/28/23 17:30 95 H 12 94 07/28/23 17:30 184/86 H 07/28/23 17:13 192/87 H 07/28/23 17:13 96 H 13 95 Room Air 07/28/23 17:00 91 H 12 96 07/28/23 16:30 171/80 H 07/28/23 16:30 77 11 L 97 Room Air 07/28/23 16:07 67 07/28/23 16:00 66 13 91 07/28/23 16:00 158/83 H 07/28/23 15:59 67 9 L 93 07/28/23 14:37 36.3 C L 64 16 165/66 H 98 Room Air Laboratory Results Short CBC 07/28/23 Range/Units 15:16 WBC 10.99 H (4.8-10.8) K/ul Hgb 13.8 (12.0-16.0) g/dl Hct 42.0 (37.0-47.0) % Plt Count 284 (130-400) K/uL BMP 07/28/23 15:16 Sodium 141 Potassium 4.1 Chloride 103 Carbon Dioxide 27 BUN 20 Creatinine 1.32 H Glucose 121 H Calcium 9.9 Liver Function 07/28/23 Range/Units 15:16 Total Bilirubin 0.5 (0.2-1.0) mg/dl AST 18 (13-39) U/L ALT 10 (7-52) U/L Alkaline Phosphatase 71 (34-104) U/L Albumin 4.2 (3.4-5.0) gm/dl Urine 07/28/23 Range/Units 15:58 Urine Color Yellow Urine Appearance Clear (Clear) Urine pH 5.0 (4.5-7.5) Ur Specific [place] 1.014 (1.000-1.030) Urine Protein Negative (Negative) Urine Glucose (UA) Negative (Negative) Diagnostic Findings Abdomen/Pelvis CT 07/28/23 15:06 CT abd pelvis IV con only CLINICAL HISTORY: LLQ abdominal pain TECHNIQUE: Helical axial images of the abdomen and pelvis were obtained and displayed. Automated dose lowering techniques and/or adjustment according to pa tient size were utilized for this exam. This exam was performed with intravenous contrast. CT DOSE: 1590.24 mGy.cm COMPARISON: Comparison is made to CT abdomen pelvis 05/07/2013 FINDINGS: Lower chest: No acute abnormality. Liver: Unremarkable. No focal lesions are seen. Gallbladder and biliary tree: No calcified gallstones. Normal caliber wall. No intra- or extrahepatic biliary ductal dilation. Pancreas: Unremarkable, no focal lesions. Spleen: Unremarkable. Adrenals: Unremarkable. Kidneys and ureters: There is a 3 mm left UVJ stone with associated hydroureter and hydronephrosis. Bladder: Unremarkable. Reproductive organs: Unremarkable. Bowel: Diverticulosis is seen without evidence of diverticulitis. Lymph nodes Retroperitoneal: Unremarkable. Pelvic: Unremarkable. Mesenteric: Unremarkable. Peritoneum: Normal. Vessels: Atherosclerotic calcifications are seen. Abdominal wall: A fat-containing umbilical hernia is seen. Bones: Degenerative changes in the visualized spine. IMPRESSION: 1. Obstructive left UVJ stone is seen with hydronephrosis and hydroureter. 2. Diverticulosis without diverticulitis. ACT 112: Negative or not required by law. Electronically signed by: Bruce Jerome M.D. 07/28/2023 4:52 PM Code Status & VTE Plan VTE Prophylaxis Plan VTE Prophylaxis will be ordered: Yes
[2023-07-28] MEDS ORDERED: GLUCAGON FOR INJ 1 MG VIAL SQ PRN (19:58)
[2023-07-28] MEDS ORDERED: GLUCOSE 40% GEL 15 GM TUBE PO PRN (19:58)
[2023-07-28] MEDS ORDERED: CARBOHYDRATES FOR HYPOGLYCEMIA PO PRN (19:58)
[2023-07-28] MEDS ORDERED: DEXTROSE 50% 50 ML SYRINGE IV PRN (19:58)
[2023-07-28] MEDS ORDERED: GLUCOSE 10 TAB/TUBE PO PRN (19:58)
[2023-07-28] MEDS ORDERED: hydrALAZINE HCL 20 MG/ML VIAL IV PRN (20:29)
[2023-07-28] MEDS ORDERED: ACETAMINOPHEN 325 MG TAB PO PRN (20:29)
[2023-07-28] MEDS ORDERED: oxyCODONE HCL IR 5 MG TAB (IMMEDIATE RELEASE) PO PRN (20:29)
[2023-07-28] MEDS ORDERED: HYDROmorphone INJ 0.5 MG/0.5 ML SYR IV PRN (20:29)
[2023-07-28] MEDS: INSULIN ASPART PER UNIT CHARGE SC SCH (21:16)
[2023-07-28] MEDS: SODIUM CHLORIDE 0.9% 1,000 ML IV SCH (21:28)
[2023-07-28] MEDS: cloNIDine HCL 0.1 MG TAB PO SCH (21:29)
[2023-07-28] MEDS: ATORVASTATIN 20 MG TAB PO SCH (21:29)
[2023-07-29] MEDS ORDERED: Nursing to Pharmacy Communication SCH ×2 (02:15→11:00)
[2023-07-29] MEDS: INSULIN ASPART PER UNIT CHARGE SC SCH ×2 (06:07→12:22)
[2023-07-29 07:22] LABS: Hematocrit (blood only) 42.5 % (37.0-47.0); Hemoglobin 13.5 g/dl (12.0-16.0); Mean Corpuscular Hemoglobin 30.8 pg (25.0-34.0); Mean Corpuscular Hgb Conc 31.8 g/dL (32.0-36.0); Mean Corpuscular Volume 96.8 fL (80.0-100.0); Platelet Count 231 K/uL (130-400); RDW Coefficient of Variation 13.3 % (11.5-14.5); RDW Standard Deviation 47.8 fL (36.4-46.3); Red Blood Count 4.39 M/uL (4.20-5.40); White Blood Count 8.33 K/ul (4.8-10.8)
[2023-07-29 07:33] LABS: Calcium 9.5 mg/dl (8.6-10.3)
[2023-07-29 07:39] LABS: BUN Creatinine Ratio 15.9 (10-20); Est GFR (African American) 60.5 ml/min; Est GFR (Non-African American) 52.2 ml/min
[2023-07-29] MEDS: LOSARTAN POTASSIUM 50 MG TAB PO SCH (08:07)
[2023-07-29] MEDS: amLODIPine BESYLATE 5 MG TAB PO SCH (08:07)
--- NOTE | 2023-07-29 08:23 | Urology Consultation ---
Date of Consultation July 29, 2023 Assessment & Plan (1) Calculus of distal left ureter: (2) Hydronephrosis with ureteral calculus: 73 yo/F admitted for renal colic secondary to an obstructing 3 mm UVJ stone and suspicion of UTI. Patient is afebrile with stable vitals Labs todaycreatinine 1.07, WBC 8.33, hemoglobin 13.5 Urine culture is preliminary showing gram-negative bacilli Patient passed stone spontaneously and reports another possible fragment in strainer this am She denies flank pain or nausea at present Plan: Patient has passed stone spontaneously No surgical intervention warranted at this time Recommend send stone fragments for stone analysis Continue broad-spectrum antibiotics and narrow per sensitivity data when available Patient can be discharged from standpoint when medically stable Will arrange outpatient follow-up with urology will sign off, contact our service with any additional questions or concerns History of Present Illness Reason for Consultation: obstructive UVJ stone with UTI Attending Physician: Comfort Reed MD History of Present Illness This is a 73-year-old female with past medical history of diabetes, morbid obesity and hypertension who presented to the emergency department on 07/28/2023 for evaluation of worsening left abdominal pain and nausea. On arrival, she was afebrile and hemodynamically stable. Labs reviewed and showed mild leukocytosis at 10.99, creatinine 1.32 and hemoglobin 13.8. Urinalysis showed 2+ blood, >30 WBC, >30 epithelial cells and 4+ bacteria. CT abdomen pelvis notable for an obstructing 3 mm left UVJ stone with hydronephrosis and hydroureter. She was treated with IV fluids, ceftriaxone, ketorolac and ondansetron in the emergency department. She was admitted to the hospital medicine service. Urology is consulted for UVJ stone, UTI. Patient seen and examined at bedside this morning. She is standing up in room ambulating from the bathroom when I arrived. She reports passing another stone fragment in her strainer this am. She has not had any pain since 8:30 PM yesterday evening. Denies nausea, vomiting, fever or chills. She is voiding spontaneously. No dysuria or hematuria. This is her first stone episode. She reports family history of stones - sister, brother. Allergies Allergy/AdvReac Type Severity Reaction Status Date / Time lisinopril AdvReac Intermediate Cough Verified 07/28/23 17:55 Home Medications Medication Instructions Recorded Confirmed Type amlodipine 5 mg tablet 5 mg PO DAILY 07/04/20 07/28/23 History atorvastatin 20 mg tablet 20 mg PO HS 07/04/20 07/28/23 History clonidine HCl 0.1 mg tablet 0.1 mg PO BID 07/04/20 07/28/23 History furosemide 40 mg tablet 40 mg PO DAILY 07/04/20 07/28/23 History losartan 50 mg tablet 50 mg PO DAILY 07/04/20 07/28/23 History meclizine 25 mg tablet 25 mg PO TID PRN Dizziness 07/04/20 07/28/23 History potassium chloride 20 mEq 20 meq PO DAILY 07/04/20 07/28/23 History tablet,extended release(part/cryst) (Klor-Con M) metformin 500 mg tablet,extended 500 mg PO HS 07/28/23 07/28/23 History release 24 hr semaglutide 2 mg/dose (8 mg/3 mL) 2 mg subcut WK 07/28/23 07/28/23 History subcutaneous pen injector (Ozempic) Patient History Social History Smoking Status: Never smoker Do You Dip or Chew Tobacco: No; Hx Alcohol Use: Yes Hx Substance Use: No Preferred Language: Andorran Communication Ability: Effective Manager Technical Sales Required: No Beliefs That Will Affect Care: None Current Living Situation: Alone Other Information That Helps Us Care for You: No Feels Safe at Home: Yes Safety Concerns: Feels Safe At This Time Assistive Devices: Glasses Review of Systems Review of Systems: ROS was performed with pertinent positives noted as above; all other systems negative Physical Exam Constitutional: well developed, well nourished and + obese; no acute distress and not ill appearing Respiratory: normal respiratory effort; no respiratory distress and no labored breathing Gastrointestinal (Abdomen): Inspection/Auscultation: abdomen normal to inspection Musculoskeletal: Head/Neck/Chest: normocephalic Neurologic: moves all extremities and awake Psychiatric: Orientation: alert and oriented x 3 Results & Data Vital Signs (Past 12 Hours) Vital Signs Temp Pulse Resp BP Pulse Ox O2 Del Method 07/29/23 07:42 36.6 C 71 18 124/78 97 Room Air PG Care Time/CCT Total # of Minutes Spent Total Time Spent with Patient: Total time spent is greater than 50% in coordination of care (as documented) at patient's floor/unit and/or counseling patient: Coding Level of Care Code 53031 INT INP/OBS CARE MIN Diagnoses Calculus of distal left ureter N20.1 Hydronephrosis with ureteral calculus N13.2
--- NOTE | 2023-07-29 14:59 | Hospitalist Progress Note ---
Date of Service July 29, 2023 Assessment & Plan (1) Calculus of distal left ureter: (2) Acute UTI (urinary tract infection): (3) HTN (hypertension): (4) Diabetes mellitus: (5) Morbid obesity: (6) DIVINA on CPAP: (7) Hydronephrosis with ureteral calculus: Plan 73-year old female with history of hypertension, diabetes, morbid obesity, DIVINA who presented to ED with left lower abdomen pain and found to have left distal ureter obstructing stone with hydronephrosis/hydroureter. Left VUJ stone with hydroureter and hydronephrosis 1st episode CT A/P with obstructive left UVJ stone with hydronephrosis and hydroureter. ED physician discussed with urology Continue ivf, flomax, oxycodone prn/dilaudid prn for pain Strain all urine. Send to lab if passes stone (pt passed stone overnight) Stone was small enough and distal passed as above UTI UA suspicious for UTI. Started on rocephin in ED Continue pending urine cx results DM-2 On ozempic which she took day of admission On metformin 500 mg hs which we will hold. diabetic diet and SSI prn. Recent A1c 5.9 HTN BP elevated due to pain, now controlled continue home clonidine, losartan, amlodipine. HLZ prn. Morbid obesity BMI 46 Weight loss recommended DIVINA on CPAP cpap ordered qhs Diet: HH/DMII DVT ppx- Lovenox SQ Dispo: home once medically stable Admission and Anticipated Discharge Date Admission Date: July 28, 2023 Subjective Pt was seen sitting in chair at bedside. Denied acute concerns. States she passed the stones, has no residual pain. Able to eat and drink. Review of Systems Review of Systems: All systems reviewed & are unremarkable except as noted in Subjective Physical Exam Physical Exam: General: Alert, oriented. No acute distress Skin: No noted rashes or bruises Psych: Appropriate mood and affect Neuro: No gross deficits HEENT: NC/AT Chest: Nontender to palpation. CV: RRR Resp: Breath sounds clear bilaterally, no increased effort of breathing. Abdomen: Soft, nontender Results & Data Results & Data Vital Signs (Past 12 Hours) Vital Signs Temp Pulse Resp BP BP Pulse Ox O2 Del Method 07/29/23 14:47 36.8 C 69 14 161/73 H 94 Room Air 07/29/23 07:42 36.6 C 71 18 124/78 97 Room Air
[2023-07-29] MEDS: cefTRIAXone SODIUM 2,000 MG in DEXTROSE 5 % MINI-B 50 ML IV SCH (16:47)
[2023-07-29] MEDS: TAMSULOSIN HCL 0.4 MG CAP PO SCH (21:37)
[2023-07-29] MEDS: ENOXAPARIN INJ 40 MG/0.4 ML SYR SQ SCH (23:15)
[2023-07-30 08:11] LABS: Basophils # (auto) 0.04 K/uL (0.00-0.20); Basophils % (auto) 0.6 %; Eosinophils # (auto) 0.19 K/uL (0.00-0.50); Eosinophils % (auto) 2.9 %; Hematocrit (blood only) 38.6 % (37.0-47.0); Hemoglobin 12.2 g/dl (12.0-16.0); Immature Granulocytes # (auto) 0.02 K/uL (0.01-0.20); Immature Granulocytes % (auto) 0.3 %; Lymphocytes # (auto) 1.77 K/uL (1.20-3.40); Lymphocytes % (auto) 26.7 %; Mean Corpuscular Hemoglobin 30.3 pg (25.0-34.0); Mean Corpuscular Hgb Conc 31.6 g/dL (32.0-36.0); Mean Corpuscular Volume 95.8 fL (80.0-100.0); Mean Platelet Volume 10.1 fL (9.4-12.4); Monocytes # (auto) 0.52 K/uL (0.11-0.59); Monocytes % (auto) 7.9 %; Neutrophils # (auto) 4.08 K/uL (1.40-6.50); Neutrophils % (auto) 61.6 %; Platelet Count 211 K/uL (130-400); RDW Coefficient of Variation 13.5 % (11.5-14.5); RDW Standard Deviation 47.5 fL (36.4-46.3); Red Blood Count 4.03 M/uL (4.20-5.40); White Blood Count 6.62 K/ul (4.8-10.8)
[2023-07-30 08:36] LABS: BUN Creatinine Ratio 16.7 (10-20); Creatinine Clr Calc Pharmacy 79.6 ml/min; Est GFR (African American) 74.6 ml/min; Est GFR (Non-African American) 64.3 ml/min; Phosphorus 2.8 mg/dl (2.5-4.9); Potassium 4.1 mmol/L (3.5-5.1)
--- NOTE | 2023-07-30 14:12 | Discharge Summary ---
Discharge Summary Date of Service July 30, 2023 Notes For Next Care Provider Follow up on Stone Analysis Medication Changes From Visit Cephalexin 500 mg twice daily for additional 7 days. Next dose is due 07/31/23 in the AM. Florastor 250 mg 1 tablet daily for the duration of antibiotic therapy. This is a probiotic to protect your GI health. Continue all other medications as prescribed Admission HPI Per Admitting Provider 73-year-old female with history of hypertension, diabetes mellitus, DIVINA on CPAP, CKD, morbid obesity, history of endometrial carcinoma who presented to ED with left lower abdomen pain started yesterday and significantly worsened today. She also had some nausea and dry heaving but no vomiting. No fever or chills. No chest pain, shortness of breath, dysuria, diarrhea. In the ED, she was found to have abnormal UA with CT abdomen pelvis showing obstructing left UVJ stone with hydronephrosis and hydroureter. ED physician spoke with Dr. Mcarthur and they will evaluate the patient in morning. Hospitalist services consulted for further management. During the encounter, patient was feeling better with the pain medication. Discussed plan of care. PMH-hypertension, diabetes, DIVINA, CKD, obesity, endometrial cancer Surgical history-hysterectomy Social history-prior smoker. Denies current alcohol, tobacco or drug abuse Allergies-lisinopril Admission Exam Per Admitting Provider General: Morbidly obese female, sitting comfortably in bed, not in distress, on room air HEENT: EOMI, SARAI, MMM Chest: Clear breath sounds bilaterally, no wheezes or crackles CVS: Regular rate and rhythm, normal heart sounds, no murmur Abdomen: Soft, mild left lower abdominal tenderness, not distended, normal bowel sounds Neuro: Awake, alert, oriented, conversing well, non focal Extremities: Trace edema Principal Dx & Hospital Course #1 = Principal Diagnosis (1) Calculus of distal left ureter: (2) Acute UTI (urinary tract infection): (3) HTN (hypertension): (4) Diabetes mellitus: (5) Morbid obesity: (6) DIVINA on CPAP: (7) Hydronephrosis with ureteral calculus: Plan 73-year old female with history of hypertension, diabetes, morbid obesity, DIVINA who presented to ED with left lower abdomen pain and found to have left distal ureter obstructing stone with hydronephrosis/hydroureter. This is her first episode of such occurrence. Admitting CT abdomen pelvis revealed an obstructive left UVJ stone with hydronephrosis and hydroureter. She was admitted to hospital and treated with IV fluids, Flomax and analgesia. She was seen and evaluated by urology. She was able to pass her stone spontaneously and this was sent to the lab for analysis. Admitting urinalysis was positive for infection. Urine culture grew E. coli. She was empirically started on IV Rocephin and this will transition to oral Keflex upon discharge. Her chronic medical conditions remained stable throughout hospital stay. On day of discharge she was in good spirits without acute complaints. She was voiding without difficulty. She was tolerating her diet without difficulty. She was encouraged to push liquids. She was hemodynamically stable on day of discharge. All questions were answered. Discharge Exam Gen: WD/WN, NAD, A&O x3 HEENT: Normocephalic, atraumatic, conjunctivae moist, sclerae anicteric, mucous membranes moist. Lung: Clear to Auscultation bilaterally, no wheezes/rales/rhonchi Heart: Regular rate, regular rhythm, no murmurs, rubs, or gallops Abdomen: Soft, NT, ND +BS x 4 Extremities: No edema Skin: Warm, no rash, negative turgor. Updated Medication List Medication Instructions Recorded Confirmed Type amlodipine 5 mg tablet 5 mg PO DAILY 07/04/20 07/28/23 History atorvastatin 20 mg tablet 20 mg PO HS 07/04/20 07/28/23 History clonidine HCl 0.1 mg tablet 0.1 mg PO BID 07/04/20 07/28/23 History furosemide 40 mg tablet 40 mg PO DAILY 07/04/20 07/28/23 History losartan 50 mg tablet 50 mg PO DAILY 07/04/20 07/28/23 History meclizine 25 mg tablet 25 mg PO TID PRN Dizziness 07/04/20 07/28/23 History potassium chloride 20 mEq 20 meq PO DAILY 07/04/20 07/28/23 History tablet,extended release(part/cryst) (Klor-Con M) metformin 500 mg tablet,extended 500 mg PO HS 07/28/23 07/28/23 History release 24 hr semaglutide 2 mg/dose (8 mg/3 mL) 2 mg subcut WK 07/28/23 07/28/23 History subcutaneous pen injector (Ozempic) Saccharomyces dyanadii 250 mg 250 mg PO DAILY #7 caps 07/30/23 Rx capsule (Florastor) cephalexin 500 mg capsule 500 mg PO BID 7 days #14 caps 07/30/23 Rx Hospital Stay Data Consultations 07/28/23 17:54 Consult Urology Stat 07/28/23 18:37 ED Decision to Admit Stat Diagnostic Imagining Performed Abdomen/Pelvis CT 07/28/23 15:06 CT abd pelvis IV con only CLINICAL HISTORY: LLQ abdominal pain TECHNIQUE: Helical axial images of the abdomen and pelvis were obtained and displayed. Automated dose lowering techniques and/or adjustment according to patient size were utilized for this exam. This exam was performed with intravenous contrast. CT DOSE: 1590.24 mGy.cm COMPARISON: Comparison is made to CT abdomen pelvis 05/07/2013 FINDINGS: Lower chest: No acute abnormality. Liver: Unremarkable. No focal lesions are seen. Gallbladder and biliary tree: No calcified gallstones. Normal caliber wall. No intra- or extrahepatic biliary ductal dilation. Pancreas: Unremarkable, no focal lesions. Spleen: Unremarkable. Adrenals: Unremarkable. Kidneys and ureters: There is a 3 mm left UVJ stone with associated hydroureter and hydronephrosis. Bladder: Unremarkable. Reproductive organs: Unremarkable. Bowel: Diverticulosis is seen without evidence of diverticulitis. Lymph nodes Retroperitoneal: Unremarkable. Pelvic: Unremarkable. Mesenteric: Unremarkable. Peritoneum: Normal. Vessels: Atherosclerotic calcifications are seen. Abdominal wall: A fat-containing umbilical hernia is seen. Bones: Degenerative changes in the visualized spine. IMPRESSION: 1. Obstructive left UVJ stone is seen with hydronephrosis and hydroureter. 2. Diverticulosis without diverticulitis. ACT 112: Negative or not required by law. Electronically signed by: Bruce Jerome M.D. 07/28/2023 4:52 PM Pending Results Patient Have Any Pending Studies at Discharge: No Discharge Instructions Given to Patient (Per Discharging Provider) MEDICATION CHANGES: Cephalexin 500 mg twice daily for additional 7 days. Next dose is due 07/31/23 in the AM. Florastor 250 mg 1 tablet daily for the duration of antibiotic therapy. This is a probiotic to protect your GI health. Continue all other medications as prescribed SUMMARY OF TEST RESULTS: You were admitted to hospital secondary to an obstructing left-sided kidney stone that resulted in hydronephrosis and blockage of urine output. You are found to have a urinary tract infection, E. coli. This is being treated with antibiotics. You were able to spontaneously passed the kidney stone. The stone was sent for analysis. PENDING TEST RESULTS: Stone analysis RECOMMENDATIONS FOR FOLLOW-UP: Please follow-up with your primary care provider as scheduled. Please complete antibiotic therapy in its entirety. Please follow-up with your primary care provider in regards to the stone analysis. Discussed this with your primary care provider in order to help prevent recurrence. Continue all other medications as prescribed. OTHER INSTRUCTIONS: Seek medical attention if you have: * temperature above 101 * chest pain or trouble breathing * abdominal pain, nausea, vomiting * diarrhea, dark stools or bloody stools * any unanswered questions or concerns Call 911 if symptoms are severe. Please take good care of yourself. It has been a pleasure taking care of you. Please take care of yourself. If you have any questions regarding your recent hospitalization please contact [facility] and request [facility] Hospitalist @ [phone]. Total Time Total Time Spent Total Time Spent (In Minutes): 45 minutes Supervising Physician Co-Signing Physician Notes Pt was seen and examined by myself, Comfort Reed MD on the day of service. Care was coordinated with Kristi Vergara PA-C. Pt was seen sitting in chair at bedside. Denied any return of the flank pain. No N/V. Abdomen and flank area not tender to palpation on exam. Pt passed stone during hospitalization, pending analysis. UA suggestive of infection and urine Cx grew pansensitive E coli. Continue with Keflex for 7 more days. Close followup after discharge. Otherwise as above. I spent a total [id number] coordinating, documenting, and providing care for this patient excluding time spent in the performance of separately billed services
--- OUTSIDE RECORDS SUMMARY | 2023-07-31 03:04 | External Medical Summary | Summary of Care ---
Author Name Unknown Organization [facility] Address [address] [place] [address] Phone [phone] Care Team Providers Care Adult Ministries Director Name Role Phone Bridgette Forde Sary THAPA Primary Care Provider [phone] Encounter Details Date Type Department Care Team (Late st Contact Info) Description 07/29/2023 Orders Only Outcomes Research Department [address] [place] [address] Nettie Piña CHRA [employer] Research Other*[id number] Allergies Active Allergy Reactions Criticality Noted Date Comments Lisinopril 02/15/2012 COUGH documented as of this encounter (statuses as of 07/29/2023) Medications Medication Sig Dispensed Refills Start Date End Date Status Meclizine HCl 25 MG Oral Tablet (Antivert)Indicatio ns:Vertigo One pill by mouth up to 3 times a day as needed for dizziness 30 Tablet 1 09/21/2021 Active Atorvastatin Calcium 20 MG Oral Tablet (Lipitor)Indication s:Dyslipidemia, goal LDL below 70 TAKE ONE TABLET BY MOUTH EVERY MORNING 100 Tablet 2 10/30/2022 10/30/2023 Active Losartan Potassium 100 MG Oral Tablet [...] Oral Tablet Extended Release 24 Hour (Glucophage XR)Indications:Type 2 diabetes mellitus with stage 3a chronic kidney disease, without long-term current use of insulin (HCC),Type 2 diabetes mellitus with stage 2 chronic kidney disease, unspecified whether fdc insulin use (HCC) Take 1 Tablet by mouth in the morning. 90 Tablet 1 07/24/2023 Active documented as of this encounter (statuses as of 07/29/2023) Active Problems Problem Noted Date Diagnosed Date [...] as of this encounter (statuses as of 07/29/2023) Resolved Problems Problem Noted Date Diagnosed Date [...] as of this encounter (statuses as of 07/29/2023) Immunizations Name Administration Dates Next Due COVID-19 mRNA, LNP-s, No Pre serve, 2-Dose Series (Pfizer) 03/09/2021 Pneumococcal Conjugate Vacci ne, 20-valent ([id number]) 07/23/2022 Pneumococcal Polysaccharide PPV23 (Pneumovax) 06/21/2020,11/19/2013 Seasonal [...] AM EDT Office Visit [facility] [address] [facility] [place] [id number] Fay Ferreira, [address] [facility] [place] [address] 10/03/2023 8:50 AM EDT Office Visit [facility], [place] [address] [address] [place], [facility] [address] [facility] [address] 10/03/2023 9:30 AM EDT Nurse Only Ancillary Department, [place] [address] [facility] [address] [place], [facility] [address] [facility] [address] 01/23/2024 8:20 AM EDT Office Visit Family Practice, [place] [address] [facility] [id number] Yenifer Krause [facility] [address] [facility] [address] 02/20/2024 7:00 AM EDT Imaging Radiology [address] [facility] [place] [address] Scheduled Orders Name Type Priority Associated Diagnoses Orde r Schedule MYCODE SUBSEQUENT ADULT Lab Routine [employer] Research Other*[id number] Every 6 Months for 2 Occurrences starting 07/29/2023 until 08/17/2024 Scheduled Procedures Name Priority Associated Diagnoses Date/Ti [...] Additional history exists CKD HGB USE SMARTSET 45255 01/16/202401/15, 07/21/2021, 02/06/2021, Additional history exists CKD PHOS USE SMARTSET 23594 01/16/202412/22, 07/21/2021, 12/22/2020, Additional history exists GFR 01/21/2024 07/22/2023, 12/22, 05/21/2022, Additional history exists HbA1c 01/21/2024 07/22/2023, 0106/2023, 01/15/2023, Additional history exists Mammogram 02/19/2024 02/18/2023, 01/22, 02/16/2022, Additional history exists Albumin/Creatinine Ratio 07/21/2024 024, 05/21/2022, 07/25/2021, Additional history exists Diabetic Foot Exam 07/23/2024 07/24/2023, 0 07/23/2022, 06/21/2020, Additional history exists Colonoscopy 07/07/2025 07/08/2015 Colorectal Cancer Screening 07/07/2025 Lipid Panel 07/21/2028 07/22/2023, 04/24, 07/21/2021, Additional history exists DXA Scan 08/22/2028 08/22/2021, [...] this encounter Visit Diagnoses Diagnosis [employer] Other*[id number] documented in this encounter Advance Directives Latest Code Status on File Code Status Date Activated Date Inactivated Comments Full Code 02/17/2021 11:44 AM 02/17/2021 4:59 PM Th is order reflects the patients wishes and were consensually agreed upon. Question Answer Comments Discussion of Advance Directives occurred with: Not Discussed Care Teams Adult Ministries Director Relationship Specialty Start Date End Date Bridgette Forde DO [address] [place] [address] PCP - General 01/12/10 documented as of this encounter
== END 2023-07-30 15:27 | disposition home or self-care (01) ==
LOC: ED 14:27 → 3N 14:27 → SUATTDRO 19:35 → 3N 20:01